=== PATIENT | male | born 1930 | race Caucasian/White ===

== ENCOUNTER 2017-04-05 08:08 | Inpatient (IN) | payer MEDICARE ==
[~2017-04-05] VITALS: Ht 177.8 cm; Wt 90.5 kg
[2017-04-05] VITALS (15 sets, daily range): BP systolic 68–113; BP diastolic 51–87; PULSE 67–91; RESP 16–20; TEMP 97.6–98.4; O2SAT 96–97
[~2017-04-05 08:08] MED LIST changes: -*RESP: ALBUTEROL 2.5 MG/3 ML NEB (PRN) PERIprocedural Use ONLY NEB ONE; -ASPI81CH CHEW; -CHLORHEXIDINE GLUCONATE 2 % 1 PACK (2 CLOTHS) TOPICAL PRN; -FERR325C PO; -HYDR-3516 PO; -INSULIN HUMAN REGULAR 1,000 UNITS/10 ML VIAL SQ PRN; -LACTATED RINGER'S 1000 ML IV PRN; -LEVO.1 PO; -LEVO.15 PO; -LEVO750T3 PO; -METOPROLOL TARTRATE 25 MG TAB PO PRN; -OMEG300C5; -SODIUM CHLORID 0.9% 500 ML IV PRN
[2017-04-05 08:42] LABS: AUTOMATED NEUTROPHIL # 21.6 TH/MM3 (1.8-7.7); BASOPHIL % 0.2 % (0.0-2.0); HEMATOCRIT 31.8 % (39.0-51.0); LYMPH % 2.3 % (9.0-44.0); LYMPHOCYTE # 0.5 TH/MM3 (1.0-4.8); MEAN CELL VOLUME 98.8 FL (80.0-100.0); MEAN CORPUSCULAR HGB CONC 32.4 % (32.0-36.0); MONO % 5.5 % (0.0-8.0); PLATELET COUNT 178 TH/MM3 (150-450); RED BLOOD COUNT 3.22 MIL/MM3 (4.50-5.90); RED CELL DISTRIBUTION WIDTH 17.7 % (11.6-17.2); WHITE BLOOD COUNT 23.5 TH/MM3 (4.0-11.0)
[2017-04-05 08:46] LABS: HEMO FLAGS AUTO DIFF
--- NOTE | 2017-04-05 08:53 | PD ---
HPI Chief Complaint: Abnormal Results Time Seen by Provider: 08:20 Travel History International Travel<30 days: No Contact w/Intl Traveler<30days: No Traveled to known affect area: No History of Present Illness HPI 87yo M with PMH of prostate CA (cancer free for 17 years), hypothyroidism (off synthroid for 3 days) was sent to the ED from same day surgery because of hypotension. As per note from [facility], pt was referred to their office for anemia and acute elevation in LFTs and US showed cholelithiasis with multiple stones in the gallbladder, marked biliary ductal dilatation measuring to 18mm with intrahepatic ductal dilatation suspect ductal obstruction. He denied any blood in stool and had +heme in stool. Pt was suppose to have ERCP by Dr. Marie today but nurse in same day surgery said his blood pressure was 55/44 and called anesthesiologist and was told to send to the ED. Pt denies any fever, chest pain, sob, abdominal pain, focal weakness or numbness or dizziness. Pt had NBNB vomiting last night. Normal bowel movement. PFSH Past Medical History Hx Anticoagulant Therapy: No Cancer: Yes (PROSTATE) Cardiovascular Problems: No Chemotherapy: Yes (HX OF PROSTATE CA) Cerebrovascular Accident: No Diabetes: No Endocrine: No Genitourinary: No Hepatitis: No Hiatal Hernia: No Immune Disorder: No Musculoskeletal: Yes (ARTHRITIS, BROKEN BACK YOUTH, LEFT HIP PAIN) Neurologic: Yes (RIGHT ARM WEAKNESS) Psychiatric: No Reproductive: No Respiratory: No Thyroid Disease: Yes Past Surgical History Abdominal Surgery: Yes (ANGELA. ING. HERNIA REP., APPY) AICD: No Eye Surgery: Yes (LEFT EYE CATARACT EXTRACAT., ANGELA. EYELID SX) Joint Replacement: Yes (LEFT HIP) Pacemaker: No Other Surgery: Yes (1997 PROSTATE REMOVAL S/P CANCER) Social History Alcohol Use: Yes (OCC) Tobacco Use: No Substance Use: No Allergies-Medications (Allergen,Severity, Reaction): Coded Allergies: Iodine (Verified Allergy, Severe, HIVES, SOB STATES ALMOST , 04/05/17) Iohexol (OMNIPAQUE) (Unverified Allergy, Unknown, HIVES - SOB, 04/05/17) Reported Meds & Prescriptions Reported Meds & Active Scripts Active Reported Synthroid (Levothyroxine Sodium) 100 Mcg Tab 100 Mcg PO DAILY Review of Systems Except as stated in HPI: all other systems reviewed are Neg Physical Exam Narrative GENERAL: 87yo M not in distress. SKIN: Jaundice. HEAD: Atraumatic. Normocephalic. EYES: Pupils equal and round. + scleral icterus. No injection or drainage. ENT: No nasal bleeding or discharge. Mucous membranes pink and moist. NECK: Trachea midline. No JVD. CARDIOVASCULAR: Regular rate and rhythm. No murmur appreciated. RESPIRATORY: No accessory muscle use. Clear to auscultation. Breath sounds equal bilaterally. GASTROINTESTINAL: Abdomen soft, non-tender, nondistended. No rebound tenderness or guarding. MUSCULOSKELETAL: No obvious deformities. No clubbing. No cyanosis. No edema. NEUROLOGICAL: Awake and alert. No obvious cranial nerve deficits. Motor grossly within normal limits. Normal speech. AAOx3. PSYCHIATRIC: Appropriate mood and affect; insight and judgment normal. Data Data Last Documented VS Vital Signs Date Time Temp Pulse Resp B/P Pulse Ox O2 Delivery O2 Flow Rate FiO2 04/05/17 09:17 96 Room Air 04/05/17 09:16 82 18 95/57 04/05/17 08:21 2 Orders Complete Blood Count With Diff (04/05/17 08:24) Basic Metabolic Panel (Bmp) (04/05/17 08:24) Thyroid Stimulating Hormone (04/05/17 08:24) Thyroxine (T4) (04/05/17 08:24) Electrocardiogram (04/05/17 ) Chest, Single Ap (04/05/17 ) Hepatic Functional Panel (04/05/17 08:39) Blood Culture (04/05/17 09:20) Lactic Acid Sepsis Protocol (04/05/17 09:20) Piperacil-Tazo 3.375 Gm Premix (Zosyn 3. (04/05/17 09:30) Sodium Chlor 0.9% 1000 Ml Inj (Ns 1000 M (04/05/17 10:00) Sodium Chlor 0.9% 1000 Ml Inj (Ns 1000 M (04/05/17 10:00) Admit Order (Ed Use Only) (04/05/17 10:24) Labs Laboratory Tests Test 04/05/17 04/05/17 08:30 09:25 White Blood Count 23.5 TH/MM3 Red Blood Count 3.22 MIL/MM3 Hemoglobin 10.3 GM/DL Hematocrit 31.8 % Mean Corpuscular Volume 98.8 FL Mean Corpuscular Hemoglobin 32.0 PG Mean Corpuscular Hemoglobin 32.4 % Concent Red Cell Distribution Width 17.7 % Platelet Count 178 TH/MM3 Mean Platelet Volume 8.8 FL Neutrophils (%) (Auto) 92.0 % Lymphocytes (%) (Auto) 2.3 % Monocytes (%) (Auto) 5.5 % Eosinophils (%) (Auto) 0.0 % Basophils (%) (Auto) 0.2 % Neutrophils # (Auto) 21.6 TH/MM3 Lymphocytes # (Auto) 0.5 TH/MM3 Monocytes # (Auto) 1.3 TH/MM3 Eosinophils # (Auto) 0.0 TH/MM3 Basophils # (Auto) 0.0 TH/MM3 CBC Comment AUTO DIFF Differential Total Cells 100 Counted Neutrophils % (Manual) 33 % Band Neutrophils % 33 % Lymphocytes % 5 % Monocytes % 6 % Neutrophils # (Manual) 20.9 TH/MM3 Metamyelocytes 21 % Myelocytes 2 % Differential Comment FINAL DIFF MANUAL Toxic Granulation 1+ Toxic Vacuolation PRESENT Dohle Bodies PRESENT Ovalocytes 1+ Sodium Level 142 MEQ/L Potassium Level 3.5 MEQ/L Chloride Level 106 MEQ/L Carbon Dioxide Level 19.4 MEQ/L Anion Gap 17 MEQ/L Blood Urea Nitrogen 23 MG/DL Creatinine 1.82 MG/DL Estimat Glomerular Filtration 35 ML/MIN Rate Random Glucose 97 MG/DL Calcium Level 8.7 MG/DL Total Bilirubin 8.9 MG/DL Direct Bilirubin 5.9 MG/DL Indirect Bilirubin 3.0 MG/DL Aspartate Amino Transf 150 U/L (AST/SGOT) Alanine Aminotransferase 108 U/L (ALT/SGPT) Alkaline Phosphatase 415 U/L Total Protein 6.5 GM/DL Albumin 2.5 GM/DL Thyroxine (T4) 7.8 MCG/DL Thyroid Stimulating Hormone 11.300 uIU/ML 3rd Gen Lactic Acid Level 7.1 mmol/L [facility] Medical Decision Making Medical Screen Exam Complete: Yes Emergency Medical Condition: Yes Interpretation(s) EKG: NSR 79bpm. Normal axis. Differential Diagnosis acute cholangitis vs. septic shock vs. electrolyte abnormality Narrative Course 87yo M sent here from same day surgery for hypotension. Pt came with a liter of LR that was started. Also gave a liter of NS here. BP initially 65/46 in the ED. Repeat BP is now 81/51. Pt is asymptomatic. Labs reviewed, leukocytosis at 23.5. Blood cultures x2 drawn and pt given IV zosyn. H/H low at 10.3/31.8, decreased from previous. Lactic acid elevated at 7.1. Creatinine elevated at 1.82 compared to 0.77 from baseline. Elevated LFTs and bilirubin. TSH elevated but normal T4. CXR showed mildly under inflated examination without acute cardiopulmonary abnormality. Pt is suppose to have ERCP today. Impression is acute cholangitis. Discussed with GI Dr. Marie who recommends admitting him to medicine and he will consult. Pt has gotten 2 liter of IVF (1 LR and 1 NS) and BP has improved to 95/57. Will give one more liter of NS IV and continue to monitor. May need to start norepinephrine. Discussed with Dr. Hernández and accepted to ICU under his service. Critical Care Narrative Aggregate critical care time was 60 minutes. Time to perform other separately billable procedures was not included in the critical care time. My time did not include minutes spent treating any other patients simultaneously or on activities that did not directly contribute to the patient's treatment. The services I provided to this patient were to treat and/or prevent clinically significant deterioration that could result in: cardiovascular collapse or . I provided critical care services requiring my management, as noted below: Chart data review, documentation time, medication orders and management, vital sign assessments/reviewing monitor data, ordering and reviewing lab tests, ordering and interpreting/reviewing x-rays and diagnostic studies, care of the patient and discussion of the patient with the admitting physicians. Diagnosis Primary Impression: Acute cholangitis Admitting Information Admitting Physician Requests: it Lima Alcala DO April 05, 2017 08:53
[2017-04-05 09:14] LABS: BICARBONATE 19.4 MEQ/L (21.0-32.0)
[2017-04-05 09:15] LABS: POTASSIUM 3.5 MEQ/L (3.5-5.1)
[2017-04-05 09:29] LABS: THYROXINE (T4) 7.8 MCG/DL (4.5-12.1); TOTAL BILIRUBIN ADULT 8.9 MG/DL (0.2-1.0)
[2017-04-05] MEDS ORDERED: PIPERACIL-TAZO 3.375 GM PREMIX 50 ML IV ONE (09:30)
--- NOTE | 2017-04-05 09:34 | RADRPT ---
EXAM DATE/TIME: 04/05/2017 09:07 [place] COMPARISON: No previous studies available for comparison. INDICATIONS : Difficulty breathing. Fluid overload. Patient was sent to the emergency room from same day surgery with low blood pressure. MEDICAL HISTORY : Carcinoma, prostatic. SURGICAL HISTORY : Inguinal hernia repair. Appendectomy. Prostatectomy. ENCOUNTER: Initial ACUITY: 1 day PAIN SCORE: 0/10 LOCATION: Bilateral chest FINDINGS: Portable AP view of the chest demonstrates a normal-sized cardiac silhouette. No effusion, consolidat ion, or pneumothorax is visualized. There is mild underinflation with mild atelectasis at the right l donovan base. Bones and soft tissues demonstrate no acute finding. CONCLUSION: Mildly underinflated examination without acute cardiopulmonary abnormality identified. Faustino Orozco MD on April 05, 2017 at 9:32 Board Certified Radiologist. This report was verified electronically.
[2017-04-05 09:44] LABS: BANDS 33 % (0-6); METAMYELOCYTES 21 % (0-1); MYELOCYTES 2 % (0-0); NEUTROPHIL # MANUAL DIFF 20.9 TH/MM3 (1.8-7.7); POLYS (SEG NEUTROPHILS) 33 % (16-70); WBC DIFF SAMPLE 100
[2017-04-05 09:45] LABS: DOHLE BODIES PRESENT (NONE SEEN); TOXIC GRANULATION 1+ (NORMAL); TOXIC VACUOLATION PRESENT (NONE SEEN)
[2017-04-05 09:48] LABS: OVALOCYTES 1+ (NORMAL)
[2017-04-05 09:50] LABS: SCAN/DIFF FINAL DIFF MANUAL
[2017-04-05] MEDS ORDERED: SODIUM CHLOR 0.9% 1000 ML INJ 1,000 ML IV ONE ×2 (10:00)
[2017-04-05] MEDS ORDERED: LEVO.15 PO (10:35)
[2017-04-05] MEDS ORDERED: LEVO.1 PO (10:36)
[2017-04-05] MEDS ORDERED: VASOPRESSIN INJ 40 UNITS in DEXTROSE 5% IN WATER 100ML INJ 98 ML IV STA ×2 (10:48)
--- NOTE | 2017-04-05 10:54 | EKG ---
Date Performed: 04/05/2017 Time Performed: 09:22:52 PTAGE: 87 years EKG: Sinus rhythm WITH SHORT TX INTERVAL WITH OCCASIONAL SUPRAVENTRICULAR PREMATURE COMPLEXES POSSIBLE RIGHT VENTRICUL AR CONDUCTION DELAY SEPTAL MYOCARDIAL INFARCTION ABNORMAL ECG PREVIOUS TRACING : 04/05/2017 08.34 No significant change from previous tracing noted. DOCTOR: Isaiah Henderson Interpretating Date/Time 04/05/2017 10:52:06
--- NOTE | 2017-04-05 10:54 | EKG ---
Date Performed: 04/05/2017 Time Performed: 08:34:32 PTAGE: 87 years EKG: Sinus rhythm WITH SHORT ND INTERVAL POSSIBLE RIGHT VENTRICULAR CONDUCTION DELAY SEPTAL MYOCARDIAL INFARCTION ABNO RMAL ECG PREVIOUS TRACING : 10/03/2007 12.57 Compared to previous tracing, possible septal infarction pa ttern is now present. DOCTOR: Isaiah Henderson Interpretating Date/Time 04/05/2017 10:52:43
[2017-04-05] MEDS ORDERED: MISCELLANEOUS NURSING INFORMATION XX SCH (11:00)
[2017-04-05] MEDS ORDERED: CHLORHEXIDINE GLUCONATE 2 % 1 PACK (2 CLOTHS) TOP PRN (11:00)
[2017-04-05] MEDS ORDERED: SODIUM CHLORIDE 0.9% FLUSH 10 ML FLUSH IV FLUSH PRN (11:00)
[2017-04-05] MEDS ORDERED: RESP: ALBUTEROL 2.5 MG/IPRATROPIUM 0.5 MG NEB (PRN) INH (11:00)
[2017-04-05] MEDS: SODIUM CHLOR 0.9% 1000 ML INJ 1,000 ML IV SCH ×2 (11:15→18:11)
[2017-04-05] MEDS: PANTOPRAZOLE SODIUM 40 MG VIAL IV SCH (11:16)
--- NOTE | 2017-04-05 11:40 | PD.CONS ---
HPI History of Present Illness This is a 87 year old [gentleman] was scheduled to have ERCP and sent from pre- op for hypotension. Pt says he felt pretty good this mornign but admits to n/v last night and occasionally for the last 2 weeks. He says he has no pain or other symptoms and didn't think anything was wrong. When asked what happened to necessitate his procedure t today he said his PCP referred him to GI specialist after reviewing labwork a few weeks ago. He then had an MRI [MRCP ? ] but claims no one would talk to him after the MRI. He otherwise unaware of how he got scheduled to have his procedure today. Pt is poor historian. On admission he was found to be hypotensive and WBC 23.5. He is receiving IV fluids. (Shahla Harrell) PFSH Past Medical History hx prostate ca arthritis right arm weakness Past Surgical History inguinal hernia repair cataract left hip replacement radical prostatectomy (Shahla Harrell) Coded Allergies: Iodine (Verified Allergy, Severe, HIVES, SOB STATES ALMOST , 04/05/17) Iohexol (OMNIPAQUE) (Unverified Allergy, Unknown, HIVES - SOB, 04/05/17) Family History non contributory Social History rare ETOH no tobacco no illicit drugs (Shahla Harrell) Review of Systems Constitutional: DENIES: Fever Ears, nose, mouth, throat: DENIES: Throat pain Respiratory: COMPLAINS OF: Sputum production Cardiovascular: DENIES: Chest pain Gastrointestinal: COMPLAINS OF: Nausea, Vomiting, DENIES: Abdominal pain, Black stools, Bloody stools, Constipation, Diarrhea, Hematemesis Genitourinary: DENIES: Hematuria Musculoskeletal: DENIES: Muscle aches Hematologic/lymphatic: DENIES: Bruising Psychiatric: DENIES: Mood changes (Shahla Harrell) GI Exam Vitals I&O Vital Signs Date Time Temp Pulse Resp B/P Pulse Ox O2 Delivery O2 Flow Rate FiO2 04/05/17 11:06 97 Nasal Cannula 2.00 04/05/17 10:58 85 87/59 97 Room Air 04/05/17 09:17 96 Room Air 04/05/17 09:16 82 18 95/57 96 Nasal Cannula 04/05/17 08:21 80 16 96 Nasal Cannula 2 04/05/17 08:12 85 16 68/51 96 Imaging Last Impressions Chest X-Ray 04/05/17 0000 Signed Impressions: Service Date/Time: Wednesday, April 05, 2017 09:07 - CONCLUSION: Mildly underinflated examination without acute cardiopulmonary abnormality identified. Faustino Orozco MD Laboratory Test 04/05/17 04/05/17 08:30 09:25 White Blood Count 23.5 TH/MM3 Red Blood Count 3.22 MIL/MM3 Hemoglobin 10.3 GM/DL Hematocrit 31.8 % Mean Corpuscular Volume 98.8 FL Mean Corpuscular Hemoglobin 32.0 PG Mean Corpuscular Hemoglobin 32.4 % Concent Red Cell Distribution Width 17.7 % Platelet Count 178 TH/MM3 Mean Platelet Volume 8.8 FL Neutrophils (%) (Auto) 92.0 % Lymphocytes (%) (Auto) 2.3 % Monocytes (%) (Auto) 5.5 % Eosinophils (%) (Auto) 0.0 % Basophils (%) (Auto) 0.2 % Neutrophils # (Auto) 21.6 TH/MM3 Lymphocytes # (Auto) 0.5 TH/MM3 Monocytes # (Auto) 1.3 TH/MM3 Eosinophils # (Auto) 0.0 TH/MM3 Basophils # (Auto) 0.0 TH/MM3 CBC Comment AUTO DIFF Differential Total Cells 100 Counted Neutrophils % (Manual) 33 % Band Neutrophils % 33 % Lymphocytes % 5 % Monocytes % 6 % Neutrophils # (Manual) 20.9 TH/MM3 Metamyelocytes 21 % Myelocytes 2 % Differential Comment FINAL DIFF MANUAL Toxic Granulation 1+ Toxic Vacuolation PRESENT Dohle Bodies PRESENT Ovalocytes 1+ Sodium Level 142 MEQ/L Potassium Level 3.5 MEQ/L Chloride Level 106 MEQ/L Carbon Dioxide Level 19.4 MEQ/L Anion Gap 17 MEQ/L Blood Urea Nitrogen 23 MG/DL Creatinine 1.82 MG/DL Estimat Glomerular Filtration 35 ML/MIN Rate Random Glucose 97 MG/DL Calcium Level 8.7 MG/DL Total Bilirubin 8.9 MG/DL Direct Bilirubin 5.9 MG/DL Indirect Bilirubin 3.0 MG/DL Aspartate Amino Transf 150 U/L (AST/SGOT) Alanine Aminotransferase 108 U/L (ALT/SGPT) Alkaline Phosphatase 415 U/L Total Protein 6.5 GM/DL Albumin 2.5 GM/DL Thyroxine (T4) 7.8 MCG/DL Thyroid Stimulating Hormone 11.300 uIU/ML 3rd Gen Lactic Acid Level 7.1 mmol/L Date/Time Procedure Status Source Growth 04/05/17 09:32 Aerobic Blood Culture Received Blood Peripheral Pending 04/05/17 09:32 Anaerobic Blood Culture Received Blood Peripheral Pending Physical Examination HEENT: EOMI; normocephalic; atraumatic; +icterus CHEST: CTA CARDIAC: RRR ABDOMEN: Soft, nondistended, nontender; no hepatosplenomegaly; bowel sounds are present in all four quadrants. EXTREMITIES: No clubbing, cyanosis, or edema. SKIN: Normal; no rash; +jaundice. GENERAL MILLING SUPERINTENDENT: No focal deficits; alert and oriented times three. (Shahla Harrell) Assessment and Plan Plan ASSESSMENT - elevated LFTs, jaundice - tbil 8.9, AST 150, ALT 108, ALP 415. per EMR a US indicated cholelithiasis, marked biliary ductal dilatation 18mm w/ intrahepatic ductal dilatation, suspicion for ductal obstruction. Pt was scheduled for MRCP and became hypotensive. PLAN - ERCP when stable - keep NPO - IV fluids - supportive care This pt seen by myself and Dr Marie and this note is written on his behalf ( Shahla Harrell) Physician Comments Seen and examined, plan for ERCP as soon as possible, for stenting in a sitting of Sepsis and cholangitis, await anesthesia clearance. Continue hydration, ATB, and supportive care. Further recommendations to follow. (Binu Marie MD) Shahla Harrell April 05, 2017 11:40 Binu Marie MD April 05, 2017 15:18
[2017-04-05 11:42] LABS: LACTIC ACID GHOST NOT REPORTABLE
--- NOTE | 2017-04-05 14:17 | HHI.HP ---
HPI Service Critical Care Medicine Primary Care Physician Tj Fallon Admission Diagnosis Acute cholangitis, severe sepsis Diagnosis: Travel History International Travel<30 Days: No Contact w/Intl Traveler <30 Da: No Traveled to Known Affected Are: No History of Present Illness 87yo M with PMH of prostate CA (cancer free for 17 years), hypothyroidism (off synthroid for 3 days) was sent to the ED from same day surgery because of hypotension. As per note from [facility], pt was referred to their office for anemia and acute elevation in LFTs and US showed cholelithiasis with multiple stones in the gallbladder, marked biliary ductal dilatation measuring to 18mm with intrahepatic ductal dilatation suspect ductal obstruction. He denied any blood in stool and had +heme in stool. Pt was suppose to have ERCP by Dr. Marie today but nurse in same day surgery said his blood pressure was 55/44 and called anesthesiologist and was told to send to the ED. Pt denies any fever, chest pain, sob, abdominal pain, focal weakness or numbness or dizziness. Pt had vomiting last night. Normal bowel movement. Patient received 3 L of crystalloid in the ER with improvement in his blood pressure. He was noted to have abnormal LFTs and a white count of 23,000. He was suspected to have cholangitis. GI requested patient be admitted by medicine and patient was accepted for admission by critical care medicine. When I evaluated the patient in the ER earlier he was laying in the ER stretcher and appeared comfortable not in any acute distress. He denied any nausea or abdominal discomfort. He was feeling cold. Denied any shortness of breath or chest pain. He does have difficulty with his left hip secondary to pain following a remote left hip replacement surgery. He lives alone at home and has a bunch of cats and dogs as well as birds. History PFSH Past Medical History Hx Anticoagulant Therapy: No Cancer: Yes (PROSTATE) Cardiovascular Problems: No Chemotherapy: Yes (HX OF PROSTATE CA) Cerebrovascular Accident: No Diabetes: No Endocrine: No Genitourinary: No Hepatitis: No Hiatal Hernia: No Immune Disorder: No Musculoskeletal: Yes (ARTHRITIS, BROKEN BACK YOUTH, LEFT HIP PAIN) Neurologic: Yes (RIGHT ARM WEAKNESS) Psychiatric: No Reproductive: No Respiratory: No Thyroid Disease: Yes Past Surgical History Abdominal Surgery: Yes (ANGELA. ING. HERNIA REP., APPY) AICD: No Eye Surgery: Yes (LEFT EYE CATARACT EXTRACAT., ANGELA. EYELID SX) Joint Replacement: Yes (LEFT HIP) Pacemaker: No Other Surgery: Yes (1997 PROSTATE REMOVAL S/P CANCER) Social History Alcohol Use: Yes (OCC) Tobacco Use: No Substance Use: No Allergies-Medications Allergies-Medications (Allergen,Severity, Reaction): Coded Allergies: Iodine (Verified Allergy, Severe, HIVES, SOB STATES ALMOST , 04/05/17) Iohexol (OMNIPAQUE) (Unverified Allergy, Unknown, HIVES - SOB, 04/05/17) Reported Meds & Prescriptions Reported Meds & Active Scripts Active Reported Synthroid (Levothyroxine Sodium) 100 Mcg Tab 100 Mcg PO DAILY ROS Review of Systems Except as stated in HPI: all other systems reviewed are Neg Past Family Social History Allergies: Coded Allergies: Iodine (Verified Allergy, Severe, HIVES, SOB STATES ALMOST , 04/05/17) Iohexol (OMNIPAQUE) (Unverified Allergy, Unknown, HIVES - SOB, 04/05/17) Physical Exam Vital Signs Vital Signs Date Time Temp Pulse Resp B/P Pulse Ox O2 Delivery O2 Flow Rate FiO2 04/05/17 13:12 81 18 113/87 96 Room Air 04/05/17 12:20 97.6 91 18 82/51 96 Room Air 04/05/17 12:00 80 16 81/51 96 Room Air 04/05/17 11:06 97 Nasal Cannula 2.00 04/05/17 11:00 80 18 90/64 96 Room Air 04/05/17 10:58 85 87/59 97 Room Air 04/05/17 09:17 96 Room Air 04/05/17 09:16 82 18 95/57 96 Nasal Cannula 04/05/17 08:21 80 16 96 Nasal Cannula 2 04/05/17 08:12 85 16 68/51 96 Physical Exam GENERAL: Elderly male laying in ER stretcher not in any acute distress. SKIN: Jaundice. HEAD: Atraumatic. Normocephalic. EYES: Pupils equal and round. + scleral icterus. No injection or drainage. ENT: No nasal bleeding or discharge. Mucous membranes pink and moist. NECK: Trachea midline. No JVD. CARDIOVASCULAR: Regular rate and rhythm. No murmur appreciated. RESPIRATORY: No accessory muscle use. Clear to auscultation. Breath sounds equal bilaterally. GASTROINTESTINAL: Abdomen soft, non-tender, nondistended. No rebound tenderness or guarding. MUSCULOSKELETAL: No obvious deformities. No clubbing. No cyanosis. No edema. NEUROLOGICAL: Awake and alert. No obvious cranial nerve deficits. Motor grossly within normal limits. Normal speech. AAOx3. PSYCHIATRIC: Appropriate mood and affect; insight and judgment normal. Laboratory Laboratory Tests Test 04/05/17 04/05/17 08:30 09:25 White Blood Count 23.5 Red Blood Count 3.22 Hemoglobin 10.3 Hematocrit 31.8 Mean Corpuscular Volume 98.8 Mean Corpuscular Hemoglobin 32.0 Mean Corpuscular Hemoglobin 32.4 Concent Red Cell Distribution Width 17.7 Platelet Count 178 Mean Platelet Volume 8.8 Neutrophils (%) (Auto) 92.0 Lymphocytes (%) (Auto) 2.3 Monocytes (%) (Auto) 5.5 Eosinophils (%) (Auto) 0.0 Basophils (%) (Auto) 0.2 Neutrophils # (Auto) 21.6 Lymphocytes # (Auto) 0.5 Monocytes # (Auto) 1.3 Eosinophils # (Auto) 0.0 Basophils # (Auto) 0.0 CBC Comment AUTO DIFF Differential Total Cells 100 Counted Neutrophils % (Manual) 33 Band Neutrophils % 33 Lymphocytes % 5 Monocytes % 6 Neutrophils # (Manual) 20.9 Metamyelocytes 21 Myelocytes 2 Differential Comment FINAL DIFF MANUAL Toxic Granulation 1+ Toxic Vacuolation PRESENT Dohle Bodies PRESENT Ovalocytes 1+ Sodium Level 142 Potassium Level 3.5 Chloride Level 106 Carbon Dioxide Level 19.4 Anion Gap 17 Blood Urea Nitrogen 23 Creatinine 1.82 Estimat Glomerular Filtration 35 Rate Random Glucose 97 Calcium Level 8.7 Total Bilirubin 8.9 Direct Bilirubin 5.9 Indirect Bilirubin 3.0 Aspartate Amino Transf 150 (AST/SGOT) Alanine Aminotransferase 108 (ALT/SGPT) Alkaline Phosphatase 415 Total Protein 6.5 Albumin 2.5 Thyroxine (T4) 7.8 Thyroid Stimulating Hormone 11.300 3rd Gen Lactic Acid Level 7.1 Date/Time Procedure Status Source Growth 04/05/17 09:32 Aerobic Blood Culture Received Blood Peripheral Pending 04/05/17 09:32 Anaerobic Blood Culture Received Blood Peripheral Pending Result Diagram: 04/05/1730 04/05/17 0830 Imaging Last Impressions Chest X-Ray 04/05/17 0000 Signed Impressions: Service Date/Time: Wednesday, April 05, 2017 09:07 - CONCLUSION: Mildly underinflated examination without acute cardiopulmonary abnormality identified. Faustino Orozco MD Septic Shock Reassessment Heart: Regular rate and rhythm Lungs: Clear Skin: Warm Peripheral Pulses: Weak Right Radial Capillary Refill: Brisk Assessment and Plan Assessment and Plan 87-year-old male with: Hypotension which is multifactorial secondary to dehydration/sepsis Sepsis Elevated LFTs Cholelithiasis with biliary tract obstruction and hyperbilirubinemia Suspected cholangitis Lactic acidosis CLARY Hypothyroidism Plan Neuro: Follow neuro status, avoid sedatives and narcotics. Cardiovascular: Aggressive fluid resuscitation. Low-dose vasopressin initiated for hypotension. Received 3 L crystalloid in the ER. Continue maintenance IV fluids. Trend lactic acid Pulmonary: Supplemental O2 as needed. GI/liver: Nothing by mouth. GI eval for further management of dilated biliary tract with suspected cholangitis. Discussed with Dr. Marie who will decide regarding ERCP. Renal/: IV hydration, strict intake output, monitor and replete electro lites , follow BUN/creatinine. ID: Empiric antibiotic coverage with IV Zosyn. Follow blood cultures. Endocrine: Watch for hyperglycemia, SSI for glycemic control if needed Prophylaxis: PPI/SCDs. Subcutaneous heparin when okay with GI. Condition critical Time spent on critical care excluding procedures 50 minutes Chaz Hernández MD April 05, 2017 14:17
[2017-04-05] MEDS: PIPERACIL-TAZO 2.25 GM PREMIX 50 ML IV SCH ×2 (18:10→23:11)
[2017-04-05] MEDS: SODIUM CHLORIDE 0.9% FLUSH 10 ML FLUSH IV FLUSH SCH (20:19)
[2017-04-06] VITALS (16 sets, daily range): BP systolic 87–106; BP diastolic 53–77; PULSE 68–100; RESP 16–28; TEMP 97.8–98.8; O2SAT 89–100
[2017-04-06] MEDS: PIPERACIL-TAZO 2.25 GM PREMIX 50 ML IV SCH ×4 (03:53→22:22)
[2017-04-06] MEDS: SODIUM CHLOR 0.9% 1000 ML INJ 1,000 ML IV SCH ×3 (03:53→14:50)
[2017-04-06] MEDS: CHLORHEXIDINE GLUCONATE 2 % 1 PACK (2 CLOTHS) TOP SCH (04:00)
[2017-04-06 06:48] LABS: AUTOMATED NEUTROPHIL # 10.3 TH/MM3 (1.8-7.7); BASOPHIL % 0.2 % (0.0-2.0); EOSINOPHIL # 0.2 TH/MM3 (0-0.4); EOSINOPHIL % 1.9 % (0.0-4.0); HEMATOCRIT 27.6 % (39.0-51.0); LYMPH % 4.2 % (9.0-44.0); LYMPHOCYTE # 0.5 TH/MM3 (1.0-4.8); MEAN CELL VOLUME 99.3 FL (80.0-100.0); MEAN CORPUSCULAR HGB CONC 32.2 % (32.0-36.0); MONO % 1.1 % (0.0-8.0); NEUT % 92.6 % (16.0-70.0); PLATELET COUNT 104 TH/MM3 (150-450); RED BLOOD COUNT 2.78 MIL/MM3 (4.50-5.90); RED CELL DISTRIBUTION WIDTH 17.6 % (11.6-17.2); WHITE BLOOD COUNT 11.1 TH/MM3 (4.0-11.0)
[2017-04-06 07:02] LABS: HEMO FLAGS AUTO DIFF
[2017-04-06 07:11] LABS: ALT (GPT) 85 U/L (12-78); ANION GAP 13 MEQ/L (5-15); AST (GOT) 112 U/L (15-37); BICARBONATE 20.7 MEQ/L (21.0-32.0); BLOOD UREA NITROGEN 31 MG/DL (7-18); CHLORIDE 111 MEQ/L (98-107); GLOMERULAR FILTRATION RATE 48 ML/MIN (>89); POTASSIUM 3.9 MEQ/L (3.5-5.1); SODIUM (NA) 145 MEQ/L (136-145)
[2017-04-06 07:12] LABS: ALKALINE PHOSPHATASE 325 U/L (45-117); TOTAL BILIRUBIN ADULT 6.4 MG/DL (0.2-1.0)
[2017-04-06 07:46] LABS: BANDS 17 % (0-6); NEUTROPHIL # MANUAL DIFF 10.5 TH/MM3 (1.8-7.7); POLYS (SEG NEUTROPHILS) 78 % (16-70); WBC DIFF SAMPLE 100
[2017-04-06 07:47] LABS: PLATELET ESTIMATE SMEAR LOW (NORMAL); PLATELET MORPHOLOGY NORMAL (NORMAL); SCAN/DIFF FINAL DIFF MANUAL
[2017-04-06] MEDS: PANTOPRAZOLE SODIUM 40 MG VIAL IV SCH (09:00)
[2017-04-06] MEDS: SODIUM CHLORIDE 0.9% FLUSH 10 ML FLUSH IV FLUSH SCH ×2 (09:00→22:22)
[2017-04-06] MEDS ORDERED: PROPOFOL 200 MG/20 ML AMP IV ONE (11:03)
[2017-04-06] MEDS ORDERED: IOHEXOL 350 MG/ML 100 ML BTL (for RAD DIAG) OTHER ONE (11:03)
[2017-04-06] MEDS ORDERED: ONDANSETRON HCL 4 MG/2 ML VIAL IV PUSH ONE (11:03)
--- NOTE | 2017-04-06 11:41 | GIPROC ---
[facility] [address] [facility]. [facility], [address] ERCP PROCEDURE REPORT EXAM DATE: 04/06/2017 PATIENT NAME: Arnold Washington MR #: [id number] BIRTHDATE: 1930 ATTENDING: Binu Marie MD ORDER #: [id number] REFLESHER: Abdiel Vaughan Stienbarger, Terrie, and Codi Evans STATUS: inpatient INDICATIONS: The patient is a 87 yr old male here for an ERCP due to established ascending cholangitis and established bile duct stone(s) PROCEDURE PERFORMED: ERCP with sphincterotomy/papillotomy ERCP with stent placement ERCP with removal of calculus/calculi MEDICATIONS: Per Anesthesia . CONSENT: The patient understands the risks and benefits of the procedure and understands that these risks include, but are not limited to: sedation, allergic reaction, infection, perforation and/or bleeding. Alternative means of evaluation and treatment include, among others: physical exam, x-rays, and/or surgical intervention. The patient elects to proceed with this endoscopic procedure. medical equipment was checked for proper function. Hand hygiene and appropriate measures for infection prevention was taken. After the risks, benefits and alternatives of the procedure were thoroughly explained, Informed was verified, confirmed and timeout was successfully executed by the treatment team. With the patient in left semi-prone position, medications were administered intravenously.The Pentax [id number] was passed from the mouth into the esophagus and further advanced from the esophagus into the stomach. From stomach scope was directed to the second portion of the duodenum. Major papilla was aligned with the duodenoscope. The scope position was confirmed fluoroscopically. Rest of the findings/therapeutics are given below. The scope was then completely withdrawn from the patient and the procedure completed. The pulse, BP, and O2 saturation were monitored and documented by the physician and the nursing staff throughout the entire procedure. The patient was cared for as planned according to standard protocol. The patient was then discharged to recovery in stable condition and with appropriate post procedure care. The ampulla was located the second portion of the duodenum. It was located within a periampullary diverticulum. NIX_THIS NIX_THIS There was a large periampullary diverticulum. There was a dilation of the common hepatic duct and CBD. NIX_THIS NIX_THIS Multiple stones were seen in the common bile duct. NIX_THIS Contrast was injected into the bile duct and a cholangiogram obtained. With guidewire in the bile duct, a large biliary sphincterotomy was performed using the sphincterotome. Using a stone extraction balloon the bile duct was swept several times. Three stones were removed from the bile duct successfully. Double Pig tail Stent placement ADVERSE EVENT: There were no complications. IMPRESSIONS: 1. 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 Impacted stone, multiple CBD stones, puss and thick bile drained after sphincterotomy 4. Double Pig-tail plastic stent placed 7F 4CM RECOMMENDATIONS: 1. Antibiotics 2. ICU monitoring 3. Stent removal after 6-8 weeks REPEAT EXAM: As needed Binu Marie MD eSigned: Binu Marie MD 04/06/2017 11:41 AM cc: PATIENT NAME: Arnold Washington MR#: [id number]
[2017-04-06] MEDS ORDERED: DO NOT ADM ANY ANTICOAGULANT DRUGS PRN (11:51)
--- NOTE | 2017-04-06 15:23 | RADRPT ---
EXAM DATE/TIME: 04/06/2017 11:09 [facility] COMPARISON: No previous studies available for comparison. INDICATIONS : Obstruction. FLUORO TIME: 3.34 minutes IMAGE COUNT: 3 CONTRAST: Instilled by Ordering Physician MEDICAL HISTORY : None. SURGICAL HISTORY : None. ENCOUNTER: Initial ACUITY: 1 day PAIN SCORE: 0/10 LOCATION: Right upper quadrant FINDINGS: An ERCP was performed by the ordering physician. The images demonstrate contrast within a prominent common duct. Inflated balloon is seen within the d istal common duct. CONCLUSION: ERCP as above. Kenji Reynoso MD on April 06, 2017 at 15:20 Board Certified Radiologist. This report was verified electronically.
--- NOTE | 2017-04-06 16:57 | HHI.CCPN ---
Subjective Remarks/Hospital Course 04/05: 87yo M with PMH of prostate CA (cancer free for 17 years), hypothyroidism (off synthroid for 3 days) was sent to the ED from same day surgery because of hypotension. As per note from [facility], pt was referred to their office for anemia and acute elevation in LFTs and US showed cholelithiasis with multiple stones in the gallbladder, marked biliary ductal dilatation measuring to 18mm with intrahepatic ductal dilatation suspect ductal obstruction. He denied any blood in stool and had +heme in stool. Pt was suppose to have ERCP by Dr. Marie today but nurse in same day surgery said his blood pressure was 55/44 and called anesthesiologist and was told to send to the ED. Pt denies any fever, chest pain, sob, abdominal pain, focal weakness or numbness or dizziness. Pt had vomiting last night. Normal bowel movement. Patient received 3 L of crystalloid in the ER with improvement in his blood pressure. He was noted to have abnormal LFTs and a white count of 23,000. He was suspected to have cholangitis. GI requested patient be admitted by medicine and patient was accepted for admission by critical care medicine. When I evaluated the patient in the ER earlier he was laying in the ER stretcher and appeared comfortable not in any acute distress. He denied any nausea or abdominal discomfort. He was feeling cold. Denied any shortness of breath or chest pain. He does have difficulty with his left hip secondary to pain following a remote left hip replacement surgery. He lives alone at home and has a bunch of cats and dogs as well as birds. 04/06: Resting in bed comfortably. Denies any nausea or abdominal discomfort currently. Underwent ERCP with sphincterotomy and CBD stenting by GI today, tolerated the procedure well. Remains on low-dose vasopressin for borderline blood pressure. Objective Vital Signs Date Time Temp Pulse Resp B/P Pulse Ox O2 Delivery O2 Flow Rate FiO2 04/06/17 16:00 78 04/06/17 13:15 18 97/53 Nasal Cannula 4 04/06/17 13:00 93 04/06/17 11:50 99.1 Intake and Output 04/05/17 04/05/17 04/06/17 08:00 16:00 00:00 Intake Total 1496 ml Balance 1496 ml Result Diagram: 04/06/17 0611 04/06/17 0611 Other Results Microbiology Date/Time Procedure Status Source Growth 04/05/17 09:32 Aerobic Blood Culture - Preliminary Resulted Blood Peripheral Gram Negative Joao 04/05/17 09:32 Anaerobic Blood Culture - Preliminary Resulted Gram Negative Joao Laboratory Tests Test 04/06/17 04/06/17 06:11 07:00 White Blood Count 11.1 TH/MM3 Red Blood Count 2.78 MIL/MM3 Hemoglobin 8.9 GM/DL Hematocrit 27.6 % Mean Corpuscular Volume 99.3 FL Mean Corpuscular Hemoglobin 32.0 PG Mean Corpuscular Hemoglobin 32.2 % Concent Red Cell Distribution Width 17.6 % Platelet Count 104 TH/MM3 Mean Platelet Volume 8.8 FL Neutrophils (%) (Auto) 92.6 % Lymphocytes (%) (Auto) 4.2 % Monocytes (%) (Auto) 1.1 % Eosinophils (%) (Auto) 1.9 % Basophils (%) (Auto) 0.2 % Neutrophils # (Auto) 10.3 TH/MM3 Lymphocytes # (Auto) 0.5 TH/MM3 Monocytes # (Auto) 0.1 TH/MM3 Eosinophils # (Auto) 0.2 TH/MM3 Basophils # (Auto) 0.0 TH/MM3 CBC Comment AUTO DIFF Differential Total Cells 100 Counted Neutrophils % (Manual) 78 % Band Neutrophils % 17 % Lymphocytes % 4 % Monocytes % 1 % Neutrophils # (Manual) 10.5 TH/MM3 Differential Comment FINAL DIFF MANUAL Platelet Estimate LOW Platelet Morphology Comment NORMAL Sodium Level 145 MEQ/L Potassium Level 3.9 MEQ/L Chloride Level 111 MEQ/L Carbon Dioxide Level 20.7 MEQ/L Anion Gap 13 MEQ/L Blood Urea Nitrogen 31 MG/DL Creatinine 1.40 MG/DL Estimat Glomerular Filtration 48 ML/MIN Rate Random Glucose 84 MG/DL Lactic Acid Level 3.8 mmol/L Calcium Level 7.8 MG/DL Total Bilirubin 6.4 MG/DL Aspartate Amino Transf 112 U/L (AST/SGOT) Alanine Aminotransferase 85 U/L (ALT/SGPT) Alkaline Phosphatase 325 U/L Total Protein 5.7 GM/DL Albumin 2.0 GM/DL Nasal Screen MRSA (PCR) MRSA NOT DETECTED Imaging Last Impressions Chest X-Ray 04/05/17 0000 Signed Impressions: Service Date/Time: Wednesday, April 05, 2017 09:07 - CONCLUSION: Mildly underinflated examination without acute cardiopulmonary abnormality identified. Faustino Orozco MD Objective Remarks GENERAL: Elderly male laying in bed not in any acute distress. SKIN: Jaundice. HEAD: Atraumatic. Normocephalic. EYES: Pupils equal and round. + scleral icterus. No injection or drainage. ENT: No nasal bleeding or discharge. Mucous membranes pink and moist. NECK: Trachea midline. No JVD. CARDIOVASCULAR: Regular rate and rhythm. No murmur appreciated. RESPIRATORY: No accessory muscle use. Clear to auscultation. Breath sounds equal bilaterally. GASTROINTESTINAL: Abdomen soft, non-tender, nondistended. No rebound tenderness or guarding. MUSCULOSKELETAL: No obvious deformities. No clubbing. No cyanosis. No edema. NEUROLOGICAL: Awake and alert. No obvious cranial nerve deficits. Motor grossly within normal limits. Normal speech. AAOx3. PSYCHIATRIC: Appropriate mood and affect; insight and judgment normal. A/P Assessment and Plan 87-year-old male with: Hypotension which is multifactorial secondary to dehydration/sepsis Sepsis Elevated LFTs Cholelithiasis with biliary tract obstruction and hyperbilirubinemia status post ERCP with CBD stenting 04/06 Suspected cholangitis Gram-negative bacteremia Lactic acidosis CLARY Hypothyroidism Plan Neuro: Follow neuro status, avoid sedatives and narcotics. Cardiovascular: Aggressive fluid resuscitation. Low-dose vasopressin initiated for hypotension. Received 3 L crystalloid in the ER. Continue maintenance IV fluids. Trend lactic acid Pulmonary: Supplemental O2 as needed. GI/liver: GI following for dilated biliary tract with suspected cholangitis. Dr. Marie performed ERCP with sphincterotomy, removal of CBD stones and CBD stenting. Renal/: IV hydration, strict intake output, monitor and replete electrolites, follow BUN/creatinine. ID: Empiric antibiotic coverage with IV Zosyn. Blood cultures growing gram- negative rods. We'll repeat blood cultures tomorrow to check for clearing. Will also obtain ID consult. May eventually require cholecystectomy. Endocrine: Watch for hyperglycemia, SSI for glycemic control if needed Prophylaxis: PPI/SCDs. Subcutaneous heparin starting 04/07. Condition critical Time spent on critical care excluding procedures 30 minutes Chaz Hernández MD April 06, 2017 16:56
[2017-04-06] MEDS: NORMOSOL R INJ 1,000 ML IV SCH ×2 (18:00→22:22)
[2017-04-07] VITALS (25 sets, daily range): BP systolic 81–122; BP diastolic 51–81; PULSE 57–81; RESP 11–28; TEMP 97.5–98.3; O2SAT 92–99
[2017-04-07] MEDS: CHLORHEXIDINE GLUCONATE 2 % 1 PACK (2 CLOTHS) TOP SCH (04:00)
[2017-04-07 05:00] LABS: AUTOMATED NEUTROPHIL # 10.3 TH/MM3 (1.8-7.7); BASOPHIL % 0.2 % (0.0-2.0); EOSINOPHIL % 0.2 % (0.0-4.0); HEMATOCRIT 26.1 % (39.0-51.0); LYMPH % 8.4 % (9.0-44.0); MEAN CELL VOLUME 96.4 FL (80.0-100.0); MEAN CORPUSCULAR HGB CONC 33.2 % (32.0-36.0); MONO % 4.4 % (0.0-8.0); NEUT % 86.8 % (16.0-70.0); PLATELET COUNT 67 TH/MM3 (150-450); RED BLOOD COUNT 2.71 MIL/MM3 (4.50-5.90); RED CELL DISTRIBUTION WIDTH 17.5 % (11.6-17.2); WHITE BLOOD COUNT 11.8 TH/MM3 (4.0-11.0)
[2017-04-07 05:13] LABS: HEMO FLAGS AUTO DIFF
[2017-04-07 05:31] LABS: ANION GAP 8 MEQ/L (5-15); AST (GOT) 82 U/L (15-37); BICARBONATE 24.6 MEQ/L (21.0-32.0); BLOOD UREA NITROGEN 33 MG/DL (7-18); CHLORIDE 107 MEQ/L (98-107); GLOMERULAR FILTRATION RATE 59 ML/MIN (>89); POTASSIUM 3.2 MEQ/L (3.5-5.1); SODIUM (NA) 140 MEQ/L (136-145)
[2017-04-07 05:35] LABS: ALKALINE PHOSPHATASE 289 U/L (45-117); ALT (GPT) 78 U/L (12-78); TOTAL BILIRUBIN ADULT 4.5 MG/DL (0.2-1.0)
[2017-04-07] MEDS: NORMOSOL R INJ 1,000 ML IV SCH ×2 (06:19→17:38)
[2017-04-07] MEDS: PIPERACIL-TAZO 2.25 GM PREMIX 50 ML IV SCH ×2 (06:20→11:04)
[2017-04-07 07:02] LABS: OVALOCYTES 1+ (NORMAL); SCAN/DIFF AUTO DIFF CONFIRMED
[2017-04-07] MEDS ORDERED: HEPARIN SODIUM - SQ 10,000 UNITS/ML VIAL SQ SCH (09:00)
[2017-04-07] MEDS: SODIUM CHLORIDE 0.9% FLUSH 10 ML FLUSH IV FLUSH SCH ×2 (09:14→19:51)
[2017-04-07] MEDS: PANTOPRAZOLE SODIUM 40 MG VIAL IV SCH (09:14)
--- NOTE | 2017-04-07 09:45 | RADRPT ---
EXAM DATE/TIME: 04/07/2017 08:38 [facility] COMPARISON: No previous studies available for comparison. INDICATIONS : Gallstones. Right upper qaudrant pain. MEDICAL HISTORY : Thyroid disease. Prostate cancer. Arthritis. SURGICAL HISTORY : Tonsillectomy. Appendectomy. Cataract eye surgery. Hernia repair. Prostatectomy. Total Left hip re placement. ERCP with sphincterotomy. ENCOUNTER: Initial ACUITY: 1 day PAIN SCORE: 2/10 LOCATION: Bilateral flank MEASUREMENTS: LIVER: 16.6 cm length COMMON DUCT: Non-visualized RIGHT KIDNEY: 10.0 x 5.9 x 5.6 cm FINDINGS: LIVER: Normal echotexture without focal lesion or ductal dilatation. Left lobe is poorly visualized due to patient body habitus. COMMON DUCT: No intraluminal mass or stone visualized. GALLBLADDER: Multiple echogenic foci are seen within the gallbladder indicating gallstones. Marked asymmetric gall bladder wall thickening. PANCREAS: Poorly visualized due to overlying bowel gas. RIGHT KIDNEY: No evidence of hydronephrosis, stone, or mass. CONCLUSION: 1. Cholelithiasis and severe asymmetric gallbladder wall thickening. Findings may indicate acute chol ecystitis in proper clinical setting. 2. small right pleural effusion. Kenji Reynoso MD on April 07, 2017 at 9:41 Board Certified Radiologist. This report was verified electronically.
--- NOTE | 2017-04-07 09:48 | HHI.CCPN ---
Subjective Remarks/Hospital Course 04/05: 87yo M with PMH of prostate CA (cancer free for 17 years), hypothyroidism (off synthroid for 3 days) was sent to the ED from same day surgery because of hypotension. As per note from [facility], pt was referred to their office for anemia and acute elevation in LFTs and US showed cholelithiasis with multiple stones in the gallbladder, marked biliary ductal dilatation measuring to 18mm with intrahepatic ductal dilatation suspect ductal obstruction. He denied any blood in stool and had +heme in stool. Pt was suppose to have ERCP by Dr. Marie today but nurse in same day surgery said his blood pressure was 55/44 and called anesthesiologist and was told to send to the ED. Pt denies any fever, chest pain, sob, abdominal pain, focal weakness or numbness or dizziness. Pt had vomiting last night. Normal bowel movement. Patient received 3 L of crystalloid in the ER with improvement in his blood pressure. He was noted to have abnormal LFTs and a white count of 23,000. He was suspected to have cholangitis. GI requested patient be admitted by medicine and patient was accepted for admission by critical care medicine. When I evaluated the patient in the ER earlier he was laying in the ER stretcher and appeared comfortable not in any acute distress. He denied any nausea or abdominal discomfort. He was feeling cold. Denied any shortness of breath or chest pain. He does have difficulty with his left hip secondary to pain following a remote left hip replacement surgery. He lives alone at home and has a bunch of cats and dogs as well as birds. 04/06: Resting in bed comfortably. Denies any nausea or abdominal discomfort currently. Underwent ERCP with sphincterotomy and CBD stenting by GI today, tolerated the procedure well. Remains on low-dose vasopressin for borderline blood pressure. 04/07: Resting in bed comfortably. Denies any nausea vomiting or abdominal discomfort currently. Tolerating by mouth diet. Off vasopressin drip for hypotension. Blood cultures growing gram-negative rods. Objective Vital Signs Date Time Temp Pulse Resp B/P Pulse Ox O2 Delivery O2 Flow Rate FiO2 04/07/17 08:31 97 Nasal Cannula 2.00 04/07/17 06:00 63 04/07/17 04:00 98.2 23 122/81 Intake and Output 04/06/17 04/06/17 04/07/17 08:00 16:00 00:00 Intake Total 824 ml 955 ml Output Total 200 ml 550 ml Balance 624 ml 405 ml Result Diagram: 04/07/17 0442 04/07/17 0442 Other Results Laboratory Tests Test 04/07/17 04:42 White Blood Count 11.8 TH/MM3 Red Blood Count 2.71 MIL/MM3 Hemoglobin 8.7 GM/DL Hematocrit 26.1 % Mean Corpuscular Volume 96.4 FL Mean Corpuscular Hemoglobin 32.0 PG Mean Corpuscular Hemoglobin 33.2 % Concent Red Cell Distribution Width 17.5 % Platelet Count 67 TH/MM3 Mean Platelet Volume 9.1 FL Neutrophils (%) (Auto) 86.8 % Lymphocytes (%) (Auto) 8.4 % Monocytes (%) (Auto) 4.4 % Eosinophils (%) (Auto) 0.2 % Basophils (%) (Auto) 0.2 % Neutrophils # (Auto) 10.3 TH/MM3 Lymphocytes # (Auto) 1.0 TH/MM3 Monocytes # (Auto) 0.5 TH/MM3 Eosinophils # (Auto) 0.0 TH/MM3 Basophils # (Auto) 0.0 TH/MM3 CBC Comment AUTO DIFF Differential Comment AUTO DIFF CONFIRMED Ovalocytes 1+ Sodium Level 140 MEQ/L Potassium Level 3.2 MEQ/L Chloride Level 107 MEQ/L Carbon Dioxide Level 24.6 MEQ/L Anion Gap 8 MEQ/L Blood Urea Nitrogen 33 MG/DL Creatinine 1.18 MG/DL Estimat Glomerular Filtration 59 ML/MIN Rate Random Glucose 116 MG/DL Lactic Acid Level 2.2 mmol/L Calcium Level 7.5 MG/DL Total Bilirubin 4.5 MG/DL Aspartate Amino Transf 82 U/L (AST/SGOT) Alanine Aminotransferase 78 U/L (ALT/SGPT) Alkaline Phosphatase 289 U/L Total Protein 5.7 GM/DL Albumin 1.9 GM/DL Imaging Last Impressions Chest X-Ray 04/05/17 0000 Signed Impressions: Service Date/Time: Wednesday, April 05, 2017 09:07 - CONCLUSION: Mildly underinflated examination without acute cardiopulmonary abnormality identified. Faustino Orozco MD Objective Remarks GENERAL: Elderly male laying in bed not in any acute distress. SKIN: Jaundice. HEAD: Atraumatic. Normocephalic. EYES: Pupils equal and round. + scleral icterus. No injection or drainage. ENT: No nasal bleeding or discharge. Mucous membranes pink and moist. NECK: Trachea midline. No JVD. CARDIOVASCULAR: Regular rate and rhythm. No murmur appreciated. RESPIRATORY: No accessory muscle use. Clear to auscultation. Breath sounds equal bilaterally. GASTROINTESTINAL: Abdomen soft, non-tender, nondistended. No rebound tenderness or guarding. MUSCULOSKELETAL: No obvious deformities. No clubbing. No cyanosis. No edema. NEUROLOGICAL: Awake and alert. No obvious cranial nerve deficits. Motor grossly within normal limits. Normal speech. AAOx3. PSYCHIATRIC: Appropriate mood and affect; insight and judgment normal. A/P Assessment and Plan 87-year-old male with: Hypotension which is multifactorial secondary to dehydration/sepsis Sepsis Elevated LFTs Choledocholithiasis/Cholelithiasis with biliary tract obstruction and hyperbilirubinemia status post ERCP with CBD stenting 04/06 Suspected cholangitis Gram-negative bacteremia Lactic acidosis CLARY Hypothyroidism Plan Neuro: Follow neuro status, avoid sedatives and narcotics. Cardiovascular: S/p Aggressive fluid resuscitation.. Received 3 L crystalloid in the ER. Continue maintenance IV fluids. Lactic acid trending down. Off vasopressin gtt. since 04/06 Pulmonary: Supplemental O2 as needed. GI/liver: GI following for dilated biliary tract with suspected cholangitis. Dr. Marie performed ERCP with sphincterotomy, removal of CBD stones and CBD stenting on 04/06. Diet advanced. Consulted general surgery to evaluate for possible need for cholecystectomy as previous imaging showed gallstones. Renal/: IV hydration, strict intake output, monitor and replete electrolites, follow BUN/creatinine. ID: Empiric antibiotic coverage with IV Zosyn. Blood cultures growing gram- negative rods. F/u repeat blood cultures done 04/07 to check for clearing. ID consult requested for cholangitis with GNR bacteremia/ septic shock. May eventually require cholecystectomy. Endocrine: Watch for hyperglycemia, SSI for glycemic control if needed Prophylaxis: PPI/SCDs. Subcutaneous heparin starting 04/07. Patient will be transferred to hospitalist service for further medical management. Critical care will be signing off, please reconsult if needed. Chaz Hernández MD Apr 07, 2017 09:48
[2017-04-07] MEDS ORDERED: POTASSIUM CHLORIDE 25 MEQ EFFERVESCENT TAB PO ONE ×2 (10:45→13:45)
--- NOTE | 2017-04-07 14:52 | PD.ID.CON ---
History of Present Illness Service ID Consult Requested By Dr.Nimish Hernández Reason for Consult Evaluation and Mment of Sepsis and Gram negative bacteremia in pt with suspected cholangitis. Primary Care Physician Tj Fallon Diagnoses: History of Present Illness Patient is an extremely poor historian. His main focus is his hand infection after a cat bite fevers back in the pain after that. He does not talk much about the acute episode that led him to this admission. Mr. Washington is an 87 y/o CM with PMHx of hypothyroidism. Patient reports having abnormal liver function test in the last 2 weeks or so and was scheduled to have an ERCP but was sent from the preop area due to hypotension. Patient reports that he was feeling well until the morning of admission but admits to nausea and vomiting the night before and occasionally off and on for the last 2 weeks. Most of this history was obtained from medical records as patient is an extremely poor historian. He denies any abdominal pain, diarrhea but does report to occasional constipation. His imaging was abnormal done as outpatient probably an MRI or MRCP and hence he was scheduled for an ERCP. Upon admission he was found to be hypotensive WBC 23.5 meeting criteria for sepsis. Patient was given fluid boluses and thereafter was on vasopressin which is currently turned off. A sepsis workup was initiated, blood cultures on admission grew gram-negative rods for limb ideas E coli. Verigene testing negative for any resistance markers. Patient reports he had a colonoscopy many years back and has no interest in getting another colonoscopy. Pt underwent ERCP with Sphincterotomy and stenting. Infectious disease is consulted for evaluation and management of sepsis and gram-negative bacteremia in a patient with suspected cholangitis. Review of Systems ROS Limitations: Poor Historian Constitutional: DENIES: Diaphoretic episodes, Fatigue, Fever, Weight gain, Weight loss, Chills, Dizziness, Change in appetite, Night Sweats Endocrine: DENIES: Heat/cold intolerance, Polydipsia, Polyuria, Polyphagia Eyes: DENIES: Blurred vision, Diplopia, Eye inflammation, Eye pain, Vision loss , Photosensitivity, Double Vision Ears, nose, mouth, throat: DENIES: Tinnitus, Hearing loss, Vertigo, Nasal discharge, Oral lesions, Throat pain, Hoarseness, Ear Pain, Running Nose, Epistaxis, Sinus Pain, Toothache, Odynophagia Respiratory: DENIES: Apneas, Cough, Snoring, Wheezing, Hemoptysis, Sputum production, Shortness of breath Cardiovascular: DENIES: Chest pain, Palpitations, Syncope, Dyspnea on Exertion , PND, Lower Extremity Edema, Orthopnea, Claudication Gastrointestinal: DENIES: Abdominal pain, Black stools, Bloody stools, Constipation, Diarrhea, Nausea, Vomiting, Difficulty Swallowing, Anorexia Genitourinary: DENIES: Sexual dysfunction, Urinary frequency, Urinary incontinence, Urgency, Hematuria, Dysuria, Nocturia, Penile Discharge, Testicular Pain, Testicular Swelling Musculoskeletal: DENIES: Joint pain, Muscle aches, Stiffness, Joint Swelling, Back pain, Neck pain Hematologic/lymphatic: DENIES: Bruising, Lymphadenopathy Immunologic/allergic: DENIES: Eczema, Urticaria Neurologic: DENIES: Abnormal gait, Headache, Localized weakness, Paresthesias, Seizures, Speech Problems, Tremor, Poor Balance Psychiatric: DENIES: Anxiety, Confusion, Mood changes, Depression, Hallucinations, Agitation, Suicidal Ideation, Homicidal Ideation, Delusions Except as stated in HPI: all other systems reviewed are Neg Past Family Social History Allergies: Coded Allergies: Iodine (Verified Allergy, Severe, HIVES, SOB STATES ALMOST , 04/05/17) Iohexol (OMNIPAQUE) (Unverified Allergy, Unknown, HIVES - SOB, 04/05/17) Past Medical History hx prostate ca arthritis right arm weakness Left hand abscess after cat bite. Past Surgical History inguinal hernia repair cataract left hip replacement radical prostatectomy Reported Medications Reported Meds & Active Scripts Active Reported Synthroid (Levothyroxine Sodium) 100 Mcg Tab 100 Mcg PO DAILY Active Ordered Medications Current Medications Medications (Trade) Dose Ordered Sig/Sobia Route Start Time Stop Time Status Last Admin (NS Flush) 2 ml UNSCH PRN IV FLUSH 04/05/17 11:00 04/07/17 09:14 (NS Flush) 2 ml BID IV FLUSH 04/05/17 21:00 04/07/17 09:14 Pantoprazole Sodium 40 mg 40 mg DAILY IV 04/05/17 11:00 04/07/17 09:14 (Zosyn 2.25 Gm Premix) 50 ml @ 200 mls/hr Q6H IV 04/05/17 16:00 04/07/17 11:04 Miscellaneous Information 1 [id number] XX 04/05/17 11:00 04/05/17 11:00 (Chlorhexidine 2% Cloth) 3 pack Taper DAILY@04 [facility] 04/06/17 04:00 04/02/18 03:59 04/06/17 04:00 (Chlorhexidine 2% Cloth) 3 pack UNSCH PRN TOP 04/05/17 11:00 Heparin Sodium (Porcine) 5000 units 5,000 units Q12HR SQ 04/07/17 09:00 Hold (Normosol R Inj) 1,000 ml @ 100 mls/hr Q10H IV 04/06/17 18:00 04/07/17 06:19 Family History rare ETOH no tobacco no illicit drugs Social History rare ETOH no tobacco no illicit drugs Physical Exam Vital Signs Vital Signs Date Time Temp Pulse Resp B/P Pulse Ox O2 Delivery O2 Flow Rate FiO2 04/07/17 13:00 80 26 98 04/07/17 12:00 97.7 61 12 98/66 97 04/07/17 12:00 61 04/07/17 11:00 67 13 93/54 94 04/07/17 10:00 62 04/07/17 10:00 78 28 100/63 92 04/07/17 09:00 63 16 107/70 95 04/07/17 08:31 97 Nasal Cannula 2.00 04/07/17 08:00 97.5 64 13 111/63 96 04/07/17 08:00 65 04/07/17 07:00 81 23 106/73 97 04/07/17 06:00 63 04/07/17 04:00 59 04/07/17 04:00 98.2 59 23 122/81 97 04/07/17 02:00 72 04/07/17 00:00 98.3 64 12 105/61 98 04/07/17 00:00 64 04/06/17 23:55 99 Nasal Cannula 3.00 04/06/17 22:00 86 04/06/17 20:35 97 Nasal Cannula 4.00 04/06/17 20:00 98.0 73 16 97/60 100 04/06/17 20:00 73 04/06/17 18:00 92 04/06/17 18:00 98.7 92 18 98/58 98 04/06/17 16:00 78 04/06/17 16:00 75 18 93/53 98 04/06/17 15:00 98.0 82 26 87/57 96 Physical Exam GENERAL: This is a well-nourished, well-developed patient, in no apparent distress. SKIN: No rashes, ecchymoses or lesions. Cool and dry. HEAD: Atraumatic. Normocephalic. No temporal or scalp tenderness. EYES: Pupils equal round and reactive. Extraocular motions intact. No scleral icterus. No injection or drainage. ENT: Nose without bleeding, purulent drainage or septal hematoma. Throat without erythema, tonsillar hypertrophy or exudate. Uvula midline. Airway patent. NECK: Trachea midline. Supple, nontender, no meningeal signs. CARDIOVASCULAR: Regular rate and rhythm. RESPIRATORY: Clear to auscultation. Breath sounds equal bilaterally. No wheezes , rales, or rhonchi. GASTROINTESTINAL: Abdomen soft, non-tender, nondistended. Foster sign negative. MUSCULOSKELETAL: Extremities without clubbing, cyanosis, or edema. No joint tenderness, effusion, or edema noted. No calf tenderness. Negative Homans sign bilaterally. NEUROLOGICAL: Awake and alert. Grossly nonfocal Psych cooperative IV line sites with no evidence of infection. Laboratory Laboratory Tests Test 04/07/17 04:42 White Blood Count 11.8 Red Blood Count 2.71 Hemoglobin 8.7 Hematocrit 26.1 Mean Corpuscular Volume 96.4 Mean Corpuscular Hemoglobin 32.0 Mean Corpuscular Hemoglobin 33.2 Concent Red Cell Distribution Width 17.5 Platelet Count 67 Mean Platelet Volume 9.1 Neutrophils (%) (Auto) 86.8 Lymphocytes (%) (Auto) 8.4 Monocytes (%) (Auto) 4.4 Eosinophils (%) (Auto) 0.2 Basophils (%) (Auto) 0.2 Neutrophils # (Auto) 10.3 Lymphocytes # (Auto) 1.0 Monocytes # (Auto) 0.5 Eosinophils # (Auto) 0.0 Basophils # (Auto) 0.0 CBC Comment AUTO DIFF Differential Comment AUTO DIFF CONFIRMED Ovalocytes 1+ Sodium Level 140 Potassium Level 3.2 Chloride Level 107 Carbon Dioxide Level 24.6 Anion Gap 8 Blood Urea Nitrogen 33 Creatinine 1.18 Estimat Glomerular Filtration 59 Rate Random Glucose 116 Lactic Acid Level 2.2 Calcium Level 7.5 Total Bilirubin 4.5 Aspartate Amino Transf 82 (AST/SGOT) Alanine Aminotransferase 78 (ALT/SGPT) Alkaline Phosphatase 289 Total Protein 5.7 Albumin 1.9 Date/Time Procedure Status Source Growth 04/06/17 20:32 Aerobic Blood Culture - Preliminary Resulted Blood Peripheral NO GROWTH IN 1 DAY 04/06/17 20:32 Anaerobic Blood Culture - Preliminary Resulted Blood Peripheral NO GROWTH IN 1 DAY Result Diagram: 04/07/17 0442 04/07/17 0442 Imaging Last Impressions Gall Bladder Ultrasound 04/07/17 0000 Signed Impressions: Service Date/Time: April 08:38 - CONCLUSION: 1. Cholelithiasis and severe asymmetric gallbladder wall thickening. Findings may indicate acute cholecystitis in proper clinical setting. 2. small right pleural effusion. Kenji Reynoso MD GI Procedure 04/06/17 0000 Signed Impressions: Service Date/Time: Thursday, April 06, 2017 11:09 - CONCLUSION: ERCP as above. Kenji Reynoso MD Chest X-Ray 04/05/17 0000 Signed Impressions: Service Date/Time: Wednesday, April 05, 2017 09:07 - CONCLUSION: Mildly underinflated examination without acute cardiopulmonary abnormality identified. Faustino Orozco MD Assessment and Plan Assessment and Plan Severe sepsis present on admission. Escherichia coli bacteremia. THE FOLLOWING RESISTANCE MARKERS WERE NOT DETECTED BY [facility]!IGENE NUCLEIC ACID TEST: CTX-M, KPC, NDM, VIM, IMP, OXA. Possible cholangitis (fever, abnormal LFTs, E.coli bacteremia but no abdominal pain or tenderness) Ione negative Possible GI etiology like colon polyp or cancer as cause for E.coli bacteremia Acute renal failure on admission Abnormal LFTs: ? cholangitis. Thrombocytopenia Recs Continue Zosyn IV Review GI consult Follow cultures Follow clinically Recommend colonoscopy at some point to rule out any GI polyps or cancer. case d/w pt, RN and Nereida Momin CCM, MD Apr 07, 2017 14:51
[2017-04-07] MEDS: PIPERACIL-TAZO 4.5 GM PREMIX 100 ML IV SCH ×2 (15:29→21:44)
--- NOTE | 2017-04-07 16:33 | HHI.GIFU ---
Subjective Remarks Pt resting comfortably in bed, denies pain, n/v. Says he feels fine and needs to get home to his cats. (Shahla Harrell) Objective Vitals I&O Vital Signs Date Time Temp Pulse Resp B/P Pulse Ox O2 Delivery O2 Flow Rate FiO2 04/07/17 16:00 65 04/07/17 14:00 73 04/07/17 13:00 80 26 98 04/07/17 12:00 97.7 61 12 98/66 97 04/07/17 12:00 61 04/07/17 11:00 67 13 93/54 94 04/07/17 10:00 62 04/07/17 10:00 78 28 100/63 92 04/07/17 09:00 63 16 107/70 95 04/07/17 08:31 97 Nasal Cannula 2.00 04/07/17 08:00 97.5 64 13 111/63 96 04/07/17 08:00 65 04/07/17 07:00 81 23 106/73 97 04/07/17 06:00 63 04/07/17 04:00 59 04/07/17 04:00 98.2 59 23 122/81 97 04/07/17 02:00 72 04/07/17 00:00 98.3 64 12 105/61 98 04/07/17 00:00 64 04/06/17 23:55 99 Nasal Cannula 3.00 04/06/17 22:00 86 04/06/17 20:35 97 Nasal Cannula 4.00 04/06/17 20:00 98.0 73 16 97/60 100 04/06/17 20:00 73 04/06/17 18:00 92 04/06/17 18:00 98.7 92 18 98/58 98 I/O 04/06/17 04/06/17 04/06/17 04/07/17 04/07/17 04/07/17 07:00 15:00 23:00 07:00 15:00 23:00 Intake Total 824 ml 800 ml 155 ml 1213 ml 1572 ml Output Total 200 ml 250 ml 300 ml 600 ml 500 ml Balance 624 ml 550 ml -145 ml 613 ml 1072 ml Intake Oral 888 ml IV Total 824 ml 300 ml 155 ml 1213 ml 684 ml Other 500 ml Output Urine Total 200 ml 250 ml 300 ml 600 ml 500 ml Stool Total 0 ml Estimated Blood Loss 0 ml # Bowel Movements 2 0 Laboratory Laboratory Tests Test 04/07/17 04:42 White Blood Count 11.8 Red Blood Count 2.71 Hemoglobin 8.7 Hematocrit 26.1 Mean Corpuscular Volume 96.4 Mean Corpuscular Hemoglobin 32.0 Mean Corpuscular Hemoglobin 33.2 Concent Red Cell Distribution Width 17.5 Platelet Count 67 Mean Platelet Volume 9.1 Neutrophils (%) (Auto) 86.8 Lymphocytes (%) (Auto) 8.4 Monocytes (%) (Auto) 4.4 Eosinophils (%) (Auto) 0.2 Basophils (%) (Auto) 0.2 Neutrophils # (Auto) 10.3 Lymphocytes # (Auto) 1.0 Monocytes # (Auto) 0.5 Eosinophils # (Auto) 0.0 Basophils # (Auto) 0.0 CBC Comment AUTO DIFF Differential Comment AUTO DIFF CONFIRMED Ovalocytes 1+ Sodium Level 140 Potassium Level 3.2 Chloride Level 107 Carbon Dioxide Level 24.6 Anion Gap 8 Blood Urea Nitrogen 33 Creatinine 1.18 Estimat Glomerular Filtration 59 Rate Random Glucose 116 Lactic Acid Level 2.2 Calcium Level 7.5 Total Bilirubin 4.5 Aspartate Amino Transf 82 (AST/SGOT) Alanine Aminotransferase 78 (ALT/SGPT) Alkaline Phosphatase 289 Total Protein 5.7 Albumin 1.9 Date/Time Procedure Status Source Growth 04/06/17 20:32 Aerobic Blood Culture - Preliminary Resulted Blood Peripheral NO GROWTH IN 1 DAY 04/06/17 20:32 Anaerobic Blood Culture - Preliminary Resulted Blood Peripheral NO GROWTH IN 1 DAY Imaging Last Impressions Gall Bladder Ultrasound 04/07/17 0000 Signed Impressions: Service Date/Time: April 08:38 - CONCLUSION: 1. Cholelithiasis and severe asymmetric gallbladder wall thickening. Findings may indicate acute cholecystitis in proper clinical setting. 2. small right pleural effusion. Kenji Reynoso MD GI Procedure 04/06/17 0000 Signed Impressions: Service Date/Time: Thursday, April 06, 2017 11:09 - CONCLUSION: ERCP as above. Kenji Reynoso MD Chest X-Ray 04/05/17 0000 Signed Impressions: Service Date/Time: Wednesday, April 05, 2017 09:07 - CONCLUSION: Mildly underinflated examination without acute cardiopulmonary abnormality identified. Faustino Orozco MD Physical Exam HEENT: EOMI; normocephalic; atraumatic; +icterus CHEST: CTA CARDIAC: RRR ABDOMEN: Soft, nondistended, nontender; no hepatosplenomegaly; bowel sounds are present in all four quadrants. EXTREMITIES: No clubbing, cyanosis, or edema. SKIN: Normal; no rash; + jaundice. RIVET STICKER: No focal deficits; alert and oriented times three. (Shahla Harrell) Assessment and Plan Plan ASSESSMENT - cholangitis, elevated LFTs, jaundice - trending down. 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 Pt was scheduled for MRCP and became hypotensive. GS consult pending for cholelithiasis. - leukocytosis - WBC improving PLAN - ALEX - IV fluids - supportive care This pt seen by myself and Dr Marie and this note is written on his behalf ( Shahla Harrell) Physician Comments asymptomatic and doing well . Ducts cleared from pus and stones. Will follow up with you. (Binu Marie MD) Shahla Harrell Apr 07, 2017 16:33 Binu Marie MD Apr 07, 2017 22:43
[2017-04-07] MEDS: LEVOTHYROXINE SODIUM 100 MCG TAB PO SCH (17:38)
[2017-04-08] VITALS (16 sets, daily range): BP systolic 92–123; BP diastolic 56–74; PULSE 50–65; RESP 10–23; TEMP 95.6–98.2; O2SAT 88–95
[2017-04-08] MEDS: NORMOSOL R INJ 1,000 ML IV SCH (03:27)
[2017-04-08] MEDS: PIPERACIL-TAZO 4.5 GM PREMIX 100 ML IV SCH ×3 (03:28→16:04)
[2017-04-08] MEDS: CHLORHEXIDINE GLUCONATE 2 % 1 PACK (2 CLOTHS) TOP SCH (05:30)
[2017-04-08] MEDS: LEVOTHYROXINE SODIUM 100 MCG TAB PO SCH (05:54)
[2017-04-08 06:02] LABS: AUTOMATED NEUTROPHIL # 8.7 TH/MM3 (1.8-7.7); BASOPHIL % 0.1 % (0.0-2.0); EOSINOPHIL # 0.1 TH/MM3 (0-0.4); EOSINOPHIL % 0.6 % (0.0-4.0); HEMATOCRIT 25.8 % (39.0-51.0); LYMPH % 11.4 % (9.0-44.0); LYMPHOCYTE # 1.2 TH/MM3 (1.0-4.8); MEAN CELL VOLUME 95.6 FL (80.0-100.0); MEAN CORPUSCULAR HGB CONC 34.5 % (32.0-36.0); MONO % 5.1 % (0.0-8.0); NEUT % 82.8 % (16.0-70.0); PLATELET COUNT 78 TH/MM3 (150-450); RED CELL DISTRIBUTION WIDTH 17.6 % (11.6-17.2); WHITE BLOOD COUNT 10.5 TH/MM3 (4.0-11.0)
[2017-04-08 06:06] LABS: HEMO FLAGS AUTO DIFF
[2017-04-08 06:35] LABS: ANION GAP 9 MEQ/L (5-15); AST (GOT) 62 U/L (15-37); BICARBONATE 24.5 MEQ/L (21.0-32.0); BLOOD UREA NITROGEN 25 MG/DL (7-18); CHLORIDE 110 MEQ/L (98-107); GLOMERULAR FILTRATION RATE 70 ML/MIN (>89); POTASSIUM 3.5 MEQ/L (3.5-5.1); SODIUM (NA) 143 MEQ/L (136-145)
[2017-04-08 06:37] LABS: ALT (GPT) 68 U/L (12-78)
[2017-04-08 06:39] LABS: ALKALINE PHOSPHATASE 255 U/L (45-117); TOTAL BILIRUBIN ADULT 3.1 MG/DL (0.2-1.0)
[2017-04-08 07:04] LABS: BANDS 19 % (0-6); CORRECTED NUCLEATED RBC 1 /100 WBC (0-0); METAMYELOCYTES 1 % (0-1); NEUTROPHIL # MANUAL DIFF 7.6 TH/MM3 (1.8-7.7); PLATELET ESTIMATE SMEAR LOW (NORMAL); PLATELET MORPHOLOGY NORMAL (NORMAL); POLYS (SEG NEUTROPHILS) 52 % (16-70); SCAN/DIFF FINAL DIFF MANUAL; WBC DIFF SAMPLE 100
[2017-04-08] MEDS: PANTOPRAZOLE SODIUM 40 MG VIAL IV SCH (08:33)
--- NOTE | 2017-04-08 08:39 | HHI.PR ---
Subjective Remarks eager for d/c home. Objective Vitals heart reg lung cta abd s/nt ext no edema Vital Signs Date Time Temp Pulse Resp B/P Pulse Ox O2 Delivery O2 Flow Rate FiO2 04/08/17 06:00 58 20 109/64 91 04/08/17 06:00 58 04/08/17 05:00 55 11 116/63 95 04/08/17 04:00 51 04/08/17 04:00 97.8 51 20 116/59 94 04/08/17 03:00 50 10 99/62 95 04/08/17 02:00 57 04/08/17 02:00 57 18 115/70 94 04/08/17 01:00 59 15 112/63 95 04/08/17 00:33 57 13 110/59 94 04/08/17 00:00 62 04/08/17 00:00 Nasal Cannula 04/08/17 00:00 62 18 108/64 91 04/08/17 00:00 97.4 62 18 108/64 91 04/07/17 23:30 57 12 106/66 97 04/07/17 23:00 60 11 110/64 97 04/07/17 22:00 57 12 109/65 96 04/07/17 22:00 57 04/07/17 21:31 60 14 113/65 95 04/07/17 21:00 64 20 97/57 97 04/07/17 20:26 59 12 91/58 94 04/07/17 20:25 96 Nasal Cannula 1.00 04/07/17 20:00 59 17 81/51 97 04/07/17 20:00 95 Nasal Cannula 1.00 04/07/17 20:00 59 04/07/17 20:00 97.8 59 18 81/51 97 04/07/17 18:00 65 04/07/17 17:00 65 19 102/66 98 04/07/17 16:00 65 04/07/17 16:00 98.0 65 14 103/64 96 04/07/17 15:00 66 20 98/61 98 04/07/17 14:00 66 14 100/60 99 04/07/17 14:00 73 04/07/17 13:00 80 26 98 04/07/17 12:00 97.7 61 12 98/66 97 04/07/17 12:00 61 04/07/17 11:00 67 13 93/54 94 04/07/17 10:00 62 04/07/17 10:00 78 28 100/63 92 04/07/17 09:00 63 16 107/70 95 04/07/17 04/07/17 04/08/17 15:00 23:00 07:00 Intake Total 1572 ml 1005 ml 1183 ml Output Total 500 ml 1100 ml 1000 ml Balance 1072 ml -95 ml 183 ml Intake Oral 888 ml 240 ml 300 ml IV Total 684 ml 765 ml 883 ml Output Urine Total 500 ml 1100 ml 1000 ml Stool Total 0 ml 0 ml # Bowel Movements 0 0 Result Diagram: 04/08/1743 04/08/17542 A/P Problem List: (1) Septic shock Status: Acute Plan: Pt presented with hypotension/septic shock from choledocholithiasis and biliary sepsis. s/p ercp, sphinterotomy/stent. pus noted. gnr/ecoli on 04/05 cx..04/06 cx ngtd. anemia/thrombocytopenia infection related. irais resolving. gi following and GS consulted for timing of lap ronak transfer out of icu diet advanced abx per ID (2) Biliary sepsis Status: Acute Plan: see above (3) Hypothyroidism Status: Chronic (4) CAD (coronary artery disease) Status: Chronic William Mejía MD Apr 08, 2017 08:39
[2017-04-08] MEDS ORDERED: PANTOPRAZOLE SOD 40 MG DELAYED RELEASE TAB PO SCH (09:00)
[2017-04-08] MEDS: SODIUM CHLORIDE 0.9% FLUSH 10 ML FLUSH IV FLUSH SCH (09:00)
--- NOTE | 2017-04-08 10:12 | HHI.CCPN ---
Subjective Remarks/Hospital Course 04/05: 87yo M with PMH of prostate CA (cancer free for 17 years), hypothyroidism (off synthroid for 3 days) was sent to the ED from same day surgery because of hypotension. As per note from [facility], pt was referred to their office for anemia and acute elevation in LFTs and US showed cholelithiasis with multiple stones in the gallbladder, marked biliary ductal dilatation measuring to 18mm with intrahepatic ductal dilatation suspect ductal obstruction. He denied any blood in stool and had +heme in stool. Pt was suppose to have ERCP by Dr. Marie today but nurse in same day surgery said his blood pressure was 55/44 and called anesthesiologist and was told to send to the ED. Pt denies any fever, chest pain, sob, abdominal pain, focal weakness or numbness or dizziness. Pt had vomiting last night. Normal bowel movement. Patient received 3 L of crystalloid in the ER with improvement in his blood pressure. He was noted to have abnormal LFTs and a white count of 23,000. He was suspected to have cholangitis. GI requested patient be admitted by medicine and patient was accepted for admission by critical care medicine. When I evaluated the patient in the ER earlier he was laying in the ER stretcher and appeared comfortable not in any acute distress. He denied any nausea or abdominal discomfort. He was feeling cold. Denied any shortness of breath or chest pain. He does have difficulty with his left hip secondary to pain following a remote left hip replacement surgery. He lives alone at home and has a bunch of cats and dogs as well as birds. 04/06: Resting in bed comfortably. Denies any nausea or abdominal discomfort currently. Underwent ERCP with sphincterotomy and CBD stenting by GI today, tolerated the procedure well. Remains on low-dose vasopressin for borderline blood pressure. 04/07: Resting in bed comfortably. Denies any nausea vomiting or abdominal discomfort currently. Tolerating by mouth diet. Off vasopressin drip for hypotension. Blood cultures growing gram-negative rods. 04/08: Resting in bed comfortably at the time of my evaluation this morning. Denies any nausea vomiting or abdominal pain. Tolerating by mouth diet. Objective Vital Signs Date Time Temp Pulse Resp B/P Pulse Ox O2 Delivery O2 Flow Rate FiO2 04/08/17 10:04 65 04/08/17 09:55 97.6 20 119/65 94 04/08/17 07:00 Room Air 6/1/17 20:25 1.00 Intake and Output 04/07/17 04/07/17 04/07/17 07:59 15:59 23:59 Intake Total 1213 ml 1572 ml 1005 ml Output Total 600 ml 500 ml 1100 ml Balance 613 ml 1072 ml -95 ml Result Diagram: 04/08/17 0543 04/08/17 0543 Imaging Last Impressions Chest X-Ray 04/05/17 0000 Signed Impressions: Service Date/Time: Wednesday, April 05, 2017 09:07 - CONCLUSION: Mildly underinflated examination without acute cardiopulmonary abnormality identified. Faustino Orozco MD Objective Remarks GENERAL: Elderly male laying in bed not in any acute distress. SKIN: Jaundice. HEAD: Atraumatic. Normocephalic. EYES: Pupils equal and round. + scleral icterus. No injection or drainage. ENT: No nasal bleeding or discharge. Mucous membranes pink and moist. NECK: Trachea midline. No JVD. CARDIOVASCULAR: Regular rate and rhythm. No murmur appreciated. RESPIRATORY: No accessory muscle use. Clear to auscultation. Breath sounds equal bilaterally. GASTROINTESTINAL: Abdomen soft, non-tender, nondistended. No rebound tenderness or guarding. MUSCULOSKELETAL: No obvious deformities. No clubbing. No cyanosis. No edema. NEUROLOGICAL: Awake and alert. No obvious cranial nerve deficits. Motor grossly within normal limits. Normal speech. AAOx3. PSYCHIATRIC: Appropriate mood and affect; insight and judgment normal. A/P Assessment and Plan 87-year-old male with: Hypotension which is multifactorial secondary to dehydration/sepsis Sepsis Elevated LFTs Choledocholithiasis/Cholelithiasis with biliary tract obstruction and hyperbilirubinemia status post ERCP with CBD stenting 04/06 Suspected cholangitis Gram-negative bacteremia Lactic acidosis CLARY Hypothyroidism Plan Neuro: Follow neuro status, avoid sedatives and narcotics. Cardiovascular: S/p Aggressive fluid resuscitation.. Received 3 L crystalloid in the ER. Continue maintenance IV fluids. Lactic acid trending down. Off vasopressin gtt. since 04/06 Pulmonary: Supplemental O2 as needed. GI/liver: GI following for dilated biliary tract with suspected cholangitis. Dr. Marie performed ERCP with sphincterotomy, removal of CBD stones and CBD stenting on 04/06. Diet advanced. Consulted general surgery to evaluate for possible need for cholecystectomy as previous imaging showed gallstones. Renal/: IV hydration, strict intake output, monitor and replete electrolites, follow BUN/creatinine. ID: Empiric antibiotic coverage with IV Zosyn. Blood cultures growing gram- negative rods. F/u repeat blood cultures done 04/07 to check for clearing. ID consult requested for cholangitis with GNR bacteremia/ septic shock. May eventually require cholecystectomy. D/W Dr. Milligan who will evaluate patient. Endocrine: Watch for hyperglycemia, SSI for glycemic control if needed Prophylaxis: PPI/SCDs. Subcutaneous heparin starting 04/07. Patient will be transferred to hospitalist service for further medical management. Critical care will be signing off, please reconsult if needed. D/w Dr. Mejía. D/W ID Chaz Hernández MD Apr 08, 2017 10:12
--- NOTE | 2017-04-08 16:10 | HHI.IDPN ---
Subjective Subjective Remarks Mr. Washington is an 87 y/o CM with PMHx of hypothyroidism. Patient reports having abnormal liver function test in the last 2 weeks or so and was scheduled to have an ERCP but was sent from the preop area due to hypotension. Patient reports that he was feeling well until the morning of admission but admits to nausea and vomiting the night before and occasionally off and on for the last 2 weeks. Most of this history was obtained from medical records as patient is an extremely poor historian. He denies any abdominal pain, diarrhea but does report to occasional constipation. His imaging was abnormal done as outpatient probably an MRI or MRCP and hence he was scheduled for an ERCP. Upon admission he was found to be hypotensive WBC 23.5 meeting criteria for sepsis. Patient was given fluid boluses and thereafter was on vasopressin which is currently turned off. A sepsis workup was initiated, blood cultures on admission grew gram-negative rods for limb ideas E coli. Verigene testing negative for any resistance markers. Patient reports he had a colonoscopy many years back and has no interest in getting another colonoscopy. Pt underwent ERCP with Sphincterotomy and stenting. Infectious disease is consulted for evaluation and management of sepsis and gram-negative bacteremia in a patient with suspected cholangitis. Overnight events reviewed. No fevers No rash No diarrhea Antibiotics Zosyn IV Lines Line sites with no e/o infection Past Medical History reviewed Allergies: Coded Allergies: Iodine (Verified Allergy, Severe, HIVES, SOB STATES ALMOST , 04/05/17) Iohexol (OMNIPAQUE) (Unverified Allergy, Unknown, HIVES - SOB, 04/05/17) Objective . Vital Signs Date Time Temp Pulse Resp B/P Pulse Ox O2 Delivery O2 Flow Rate FiO2 04/08/17 12:00 95.6 57 16 95/63 94 04/08/17 10:04 65 04/08/17 09:55 97.6 56 20 119/65 94 04/08/17 09:33 94 Room Air 04/08/17 09:30 95 04/08/17 08:01 52 12 115/71 95 04/08/17 08:00 65 04/08/17 08:00 98.2 58 19 95 04/08/17 07:00 62 23 123/74 88 04/08/17 07:00 98 Room Air 04/08/17 06:00 58 20 109/64 91 04/08/17 06:00 58 20 109/64 91 04/08/17 06:00 58 04/08/17 05:00 55 11 116/63 95 04/08/17 05:00 55 11 116/63 95 04/08/17 04:00 51 13 116/59 94 04/08/17 04:00 51 04/08/17 04:00 97.8 51 20 116/59 94 04/08/17 03:00 50 10 99/62 95 04/08/17 03:00 50 10 99/62 95 04/08/17 02:00 57 18 115/70 94 04/08/17 02:00 57 04/08/17 02:00 57 18 115/70 94 04/08/17 01:00 59 15 112/63 95 04/08/17 01:00 59 15 112/63 95 04/08/17 00:33 57 13 110/59 94 04/08/17 00:33 57 13 110/59 94 04/08/17 00:00 62 18 108/64 91 04/08/17 00:00 62 04/08/17 00:00 Nasal Cannula 04/08/17 00:00 62 18 108/64 91 04/08/17 00:00 97.4 62 18 108/64 91 04/07/17 23:30 57 12 106/66 97 04/07/17 23:00 60 11 110/64 97 04/07/17 22:00 57 12 109/65 96 04/07/17 22:00 57 04/07/17 21:31 60 14 113/65 95 04/07/17 21:00 64 20 97/57 97 04/07/17 20:26 59 12 91/58 94 04/07/17 20:25 96 Nasal Cannula 1.00 04/07/17 20:00 59 17 81/51 97 04/07/17 20:00 95 Nasal Cannula 1.00 04/07/17 20:00 59 04/07/17 20:00 97.8 59 18 81/51 97 04/07/17 18:00 65 04/07/17 17:00 65 19 102/66 98 04/07/17 04/07/17 04/08/17 15:00 23:00 07:00 Intake Total 1572 ml 1005 ml 1183 ml Output Total 500 ml 1100 ml 1000 ml Balance 1072 ml -95 ml 183 ml Intake Oral 888 ml 240 ml 300 ml IV Total 684 ml 765 ml 883 ml Output Urine Total 500 ml 1100 ml 1000 ml Stool Total 0 ml 0 ml # Bowel Movements 0 0 . Laboratory Tests Test 04/07/17 04/08/17 04:42 05:43 White Blood Count 11.8 TH/MM3 10.5 TH/MM3 Red Blood Count 2.71 MIL/MM3 2.70 MIL/MM3 Hemoglobin 8.7 GM/DL 8.9 GM/DL Hematocrit 26.1 % 25.8 % Mean Corpuscular Volume 96.4 FL 95.6 FL Mean Corpuscular Hemoglobin 32.0 PG 33.0 PG Mean Corpuscular Hemoglobin 33.2 % 34.5 % Concent Red Cell Distribution Width 17.5 % 17.6 % Platelet Count 67 TH/MM3 78 TH/MM3 Mean Platelet Volume 9.1 FL 10.0 FL Neutrophils (%) (Auto) 86.8 % 82.8 % Lymphocytes (%) (Auto) 8.4 % 11.4 % Monocytes (%) (Auto) 4.4 % 5.1 % Eosinophils (%) (Auto) 0.2 % 0.6 % Basophils (%) (Auto) 0.2 % 0.1 % Neutrophils # (Auto) 10.3 TH/MM3 8.7 TH/MM3 Lymphocytes # (Auto) 1.0 TH/MM3 1.2 TH/MM3 Monocytes # (Auto) 0.5 TH/MM3 0.5 TH/MM3 Eosinophils # (Auto) 0.0 TH/MM3 0.1 TH/MM3 Basophils # (Auto) 0.0 TH/MM3 0.0 TH/MM3 CBC Comment AUTO DIFF AUTO DIFF Differential Comment AUTO DIFF FINAL DIFF CONFIRMED MANUAL Ovalocytes 1+ Differential Total Cells 100 Counted Neutrophils % (Manual) 52 % Band Neutrophils % 19 % Lymphocytes % 25 % Monocytes % 3 % Neutrophils # (Manual) 7.6 TH/MM3 Metamyelocytes 1 % Nucleated Red Blood Cells 1 /100 WBC Platelet Estimate LOW Platelet Morphology Comment NORMAL Red Cell Morphology Comment NORMAL Laboratory Tests Test 04/07/17 04/08/17 04:42 05:43 Sodium Level 140 MEQ/L 143 MEQ/L Potassium Level 3.2 MEQ/L 3.5 MEQ/L Chloride Level 107 MEQ/L 110 MEQ/L Carbon Dioxide Level 24.6 MEQ/L 24.5 MEQ/L Anion Gap 8 MEQ/L 9 MEQ/L Blood Urea Nitrogen 33 MG/DL 25 MG/DL Creatinine 1.18 MG/DL 1.01 MG/DL Estimat Glomerular Filtration 59 ML/MIN 70 ML/MIN Rate Random Glucose 116 MG/DL 101 MG/DL Lactic Acid Level 2.2 mmol/L Calcium Level 7.5 MG/DL 8.1 MG/DL Total Bilirubin 4.5 MG/DL 3.1 MG/DL Aspartate Amino Transf 82 U/L 62 U/L (AST/SGOT) Alanine Aminotransferase 78 U/L 68 U/L (ALT/SGPT) Alkaline Phosphatase 289 U/L 255 U/L Total Protein 5.7 GM/DL 5.5 GM/DL Albumin 1.9 GM/DL 1.8 GM/DL Microbiology Date/Time Procedure Status Source Growth 04/06/17 20:15 Aerobic Blood Culture - Preliminary Resulted Blood Peripheral NO GROWTH IN 2 DAYS 04/06/17 20:15 Anaerobic Blood Culture - Preliminary Resulted Blood Peripheral NO GROWTH IN 2 DAYS 04/06/17 20:32 Aerobic Blood Culture - Preliminary Resulted Blood Peripheral NO GROWTH IN 2 DAYS 04/06/17 20:32 Anaerobic Blood Culture - Preliminary Resulted Blood Peripheral NO GROWTH IN 2 DAYS Imaging Last Impressions Gall Bladder Ultrasound 04/07/17 0000 Signed Impressions: Service Date/Time: April 08:38 - CONCLUSION: 1. Cholelithiasis and severe asymmetric gallbladder wall thickening. Findings may indicate acute cholecystitis in proper clinical setting. 2. small right pleural effusion. Kenji Reynoso MD GI Procedure 04/06/17 0000 Signed Impressions: Service Date/Time: Thursday, April 06, 2017 11:09 - CONCLUSION: ERCP as above. Kenji Reynoso MD Chest X-Ray 04/05/17 0000 Signed Impressions: Service Date/Time: Wednesday, April 05, 2017 09:07 - CONCLUSION: Mildly underinflated examination without acute cardiopulmonary abnormality identified. Faustino Orozco MD Physical Exam GENERAL: This is a well-nourished, well-developed patient, in no apparent distress. SKIN: No rashes, ecchymoses or lesions. Cool and dry. HEAD: Atraumatic. Normocephalic. No temporal or scalp tenderness. EYES: Pupils equal round and reactive. Extraocular motions intact. No scleral icterus. No injection or drainage. ENT: Nose without bleeding, purulent drainage or septal hematoma. Throat without erythema, tonsillar hypertrophy or exudate. Uvula midline. Airway patent. NECK: Trachea midline. Supple, nontender, no meningeal signs. CARDIOVASCULAR: Regular rate and rhythm. RESPIRATORY: Clear to auscultation. Breath sounds equal bilaterally. No wheezes , rales, or rhonchi. GASTROINTESTINAL: Abdomen soft, non-tender, nondistended. Foster sign negative. MUSCULOSKELETAL: Extremities without clubbing, cyanosis, or edema. No joint tenderness, effusion, or edema noted. No calf tenderness. Negative Homans sign bilaterally. NEUROLOGICAL: Awake and alert. Grossly nonfocal Psych cooperative IV line sites with no evidence of infection. Assessment & Plan Remarks Severe sepsis present on admission. Escherichia coli, Klebsiella and Raolatella orni bacteremia. Possible cholangitis (fever, abnormal LFTs, E.coli bacteremia but no abdominal pain or tenderness) [place] negative Possible GI etiology like colon polyp or cancer as cause for E.coli bacteremia Acute renal failure on admission Abnormal LFTs: ? cholangitis. Thrombocytopenia Recs DC Zosyn IV Switch to oral Levaquin 750 mg po daily high dose for bacteremia for total of 14 additional days. Recommend repeat blood culture as outpatient 1 week after completion of IV antibiotics. Needs surgery follow up to address source control. Follow cultures Follow clinically Recommend colonoscopy at some point to rule out any GI polyps or cancer. case d/w pt, RN and . Nereida Hernández MD Apr 08, 2017 16:10
[2017-04-08] MEDS ORDERED: LEVO750T3 PO (16:18)
--- NOTE | 2017-04-08 16:19 | HHI.DCPOC ---
Discharge Care Plan Diagnosis: (1) Biliary sepsis (2) Septic shock (3) Acute cholangitis (4) CAD (coronary artery disease) (5) Hypothyroidism Goals to Promote Your Health * To prevent worsening of your condition and complications * To maintain your health at the optimal level Directions to Meet Your Goals Take your medications as prescribed Follow your dietary instruction Follow activity as directed Keep your appointments as scheduled Take your immunizations and boosters as scheduled If your symptoms worsen call your PCP, if no PCP go to Urgent Care Center or Emergency Room Smoking is Dangerous to Your Health. Avoid second hand smoke Call the 24-hour hour crisis hotline for domestic abuse at William Mejía MD Apr 08, 2017 16:19
--- NOTE | 2017-04-08 16:43 | HHI.DS ---
Discharge Summary Admission Date April 05, 2017 at 10:25 Discharge Date: Apr 08, 2017 Admitting Diagnosis Acute cholangitis, severe sepsis (1) Septic shock Diagnosis: Principal (2) Biliary sepsis Diagnosis: Principal (3) Hypothyroidism Diagnosis: Secondary (4) CAD (coronary artery disease) Diagnosis: Secondary Consultants Dr. Nereida Hernández - Infectious Disease Dr. Sari Marie - GI Brief History (Brief History obtained from the intensivists H&P) "Mr. Washington is an 87 y/o male with PMH of prostate CA (cancer free for 17 years ) and hypothyroidism (off Synthroid for 3 days) was sent to the ED from same day surgery because of hypotension. As per note from [facility], pt was referred to their office for anemia and acute elevation in LFTs and US showed cholelithiasis with multiple stones in the gallbladder, marked biliary ductal dilatation measuring to 18mm with intrahepatic ductal dilatation suspect ductal obstruction. He denied any blood in stool and had +heme in stool. Pt was suppose to have ERCP by Dr. Marie today but nurse in same day surgery said his blood pressure was 55/44 and called anesthesiologist and was told to send to the ED. Pt denies any fever, chest pain, sob, abdominal pain, focal weakness or numbness or dizziness. Pt had vomiting last night. Normal bowel movement. Patient received 3 L of crystalloid in the ER with improvement in his blood pressure. He was noted to have abnormal LFTs and a white count of 23,000. He was suspected to have cholangitis. GI requested patient be admitted by medicine and patient was accepted for admission by critical care medicine. When I evaluated the patient in the ER earlier he was laying in the ER stretcher and appeared comfortable not in any acute distress. He denied any nausea or abdominal discomfort. He was feeling cold. Denied any shortness of breath or chest pain. He does have difficulty with his left hip secondary to pain following a remote left hip replacement surgery. He lives alone at home and has a bunch of cats and dogs as well as birds." CBC/BMP: 04/08/17 0543 04/08/17 0543 Significant Findings Laboratory Tests Test 04/06/17 04/07/17 04/08/17 06:11 04:42 05:43 White Blood Count 11.1 TH/MM3 11.8 TH/MM3 (4.0-11.0) (4.0-11.0) Red Blood Count 2.78 MIL/MM3 2.71 MIL/MM3 2.70 MIL/MM3 (4.50-5.90) (4.50-5.90) (4.50-5.90) Hemoglobin 8.9 GM/DL 8.7 GM/DL 8.9 GM/DL (13.0-17.0) (13.0-17.0) (13.0-17.0) Hematocrit 27.6 % 26.1 % 25.8 % (39.0-51.0) (39.0-51.0) (39.0-51.0) Red Cell Distribution Width 17.6 % 17.5 % 17.6 % (11.6-17.2) (11.6-17.2) (11.6-17.2) Platelet Count 104 TH/MM3 67 TH/MM3 78 TH/MM3 (150-450) (150-450) (150-450) Neutrophils (%) (Auto) 92.6 % 86.8 % 82.8 % (16.0-70.0) (16.0-70.0) (16.0-70.0) Lymphocytes (%) (Auto) 4.2 % 8.4 % (9.0-44.0) (9.0-44.0) Neutrophils # (Auto) 10.3 TH/MM3 10.3 TH/MM3 8.7 TH/MM3 (1.8-7.7) (1.8-7.7) (1.8-7.7) Lymphocytes # (Auto) 0.5 TH/MM3 (1.0-4.8) Neutrophils % (Manual) 78 % (16-70) Band Neutrophils % 17 % (0-6) 19 % (0-6) Lymphocytes % 4 % (9-44) Neutrophils # (Manual) 10.5 TH/MM3 (1.8-7.7) Platelet Estimate LOW (NORMAL) LOW (NORMAL) Chloride Level 111 MEQ/L 110 MEQ/L (98-107) (98-107) Carbon Dioxide Level 20.7 MEQ/L (21.0-32.0) Blood Urea Nitrogen 31 MG/DL (7-18) 33 MG/DL (7-18) 25 MG/DL (7-18) Creatinine 1.40 MG/DL (0.60-1.30) Estimat Glomerular Filtration 48 ML/MIN (>89) 59 ML/MIN (>89) 70 ML/MIN (>89) Rate Lactic Acid Level 3.8 mmol/L 2.2 mmol/L (0.4-2.0) (0.4-2.0) Calcium Level 7.8 MG/DL 7.5 MG/DL 8.1 MG/DL (8.5-10.1) (8.5-10.1) (8.5-10.1) Total Bilirubin 6.4 MG/DL 4.5 MG/DL 3.1 MG/DL (0.2-1.0) (0.2-1.0) (0.2-1.0) Aspartate Amino Transf 112 U/L (15-37) 82 U/L (15-37) 62 U/L (15-37) (AST/SGOT) Alanine Aminotransferase 85 U/L (12-78) (ALT/SGPT) Alkaline Phosphatase 325 U/L 289 U/L 255 U/L (45-117) (45-117) (45-117) Total Protein 5.7 GM/DL 5.7 GM/DL 5.5 GM/DL (6.4-8.2) (6.4-8.2) (6.4-8.2) Albumin 2.0 GM/DL 1.9 GM/DL 1.8 GM/DL (3.4-5.0) (3.4-5.0) (3.4-5.0) Ovalocytes 1+ (NORMAL) Potassium Level 3.2 MEQ/L (3.5-5.1) Random Glucose 116 MG/DL (74-106) Nucleated Red Blood Cells 1 /100 WBC (0-0) Imaging Last Impressions Gall Bladder Ultrasound 04/07/17 0000 Signed Impressions: Service Date/Time: April 08:38 - CONCLUSION: 1. Cholelithiasis and severe asymmetric gallbladder wall thickening. Findings may indicate acute cholecystitis in proper clinical setting. 2. small right pleural effusion. Kenji Reynoso MD GI Procedure 04/06/17 0000 Signed Impressions: Service Date/Time: Thursday, April 06, 2017 11:09 - CONCLUSION: ERCP as above. Kenji Reynoso MD Chest X-Ray 04/05/17 0000 Signed Impressions: Service Date/Time: Wednesday, April 05, 2017 09:07 - CONCLUSION: Mildly underinflated examination without acute cardiopulmonary abnormality identified. Faustino Orozco MD Hospital Course Pt presented for an outpt ERCP for acute elevation in LFTs and outpt imaging which noted cholelithiasis with multiple stones in the gallbladder, marked biliary ductal dilatation measuring to 18mm with intrahepatic ductal dilatation suspect ductal obstruction. Pre-procedurally he was found to be hypotension/ septic shock from choledocholithiasis and biliary sepsis. He was admitted to [facility] under the care of the ict support and test engineers. Pt was given aggressive fluid resuscitation, low-dose vasopressin initiated for hypotension and was given empiric antibiotic coverage with IV Zosyn. GI was consulted and pt underwent ERCP with sphincterotomy/stent placement on 04/06/[address] Marie and pt was noted to have Impacted stone, multiple CBD stones, puss and thick bile drained after sphincterotomy performed. ID was consulted. Blood cultures were drawn in the ED (04/05) grew out E. coli, Klebsiella, and Raoultella Ornithinolytica. Repeat blood cultures on 04/06 with no growth to date. Gallbladder US (04/07/17) -- > Cholelithiasis and severe asymmetric gallbladder wall thickening and small right pleural effusion. General surgery was consulted. The pt was insisting upon discharge on 04/08/17 as he was feeling better. ID switched antibiotics to oral Levaquin 750 mg po daily high dose for bacteremia for total of 14 additional days. ID has also recommend repeat blood culture as outpatient 1 week after completion of IV antibiotics, this will be arranged at followup with PCP. Pt did not want to wait to see the General Surgeon during the hospitalization. We discussed the case with Dr. Milligan and states that he will see this patient in the office in 2 weeks, patient is to call to schedule the appt. Patient will need to followup with GI in 2 weeks and will need repeat ERCP with stent removal in 6-8 weeks. Pt will need to followup with his PCP, Dr. Dianna Fallon, in 1 week. Pt Condition on Discharge: Stable Discharge Disposition: Discharge Home Discharge Instructions Follow up Referrals: Gastroenterology - 04/22/17 with Binu Marie MD PCP Follow-up - 1 Week with dianna fallon Surgical - 2 Weeks with Jose Manuel Milligan MD New Medications: Levofloxacin (Levofloxacin) 750 Mg Tablet 750 MG PO Q24H Infection #13 MG Continued Medications: Levothyroxine (Synthroid) 100 Mcg Tab 100 MCG PO DAILY Thyroid #30 Ref 0 TAB Lolita Morris Apr 08, 2017 16:43
[2017-04-08] MEDS ORDERED: LEVOFLOXACIN 750 MG TAB PO SCH (17:00)
== END 2017-04-08 17:31 | disposition home or self-care (01) | DRG 871 ==
LOC: NEPE 08:08 → NEDA 10:25 → HIME 14:40 → N07A 04-08 09:31
PROVIDERS: ADMIT Internal Medicine Critical Care Medicine; ATTEND Internal Medicine Critical Care Medicine
PROC: 0F798DZ Dilation of Common Bile Duct with Intraluminal Device, Via Natural or Artificial Opening Endoscopic (ICD-10-PCS; 2017-04-06)
PROC: 0FC98ZZ Extirpation of Matter from Common Bile Duct, Via Natural or Artificial Opening Endoscopic (ICD-10-PCS; principal; 2017-04-06 11:00)
DX: A41.59 Other Gram-negative sepsis (principal); R65.21 Severe sepsis with septic shock; N17.9 Acute kidney failure, unspecified; E87.2 Acidosis; E86.0 Dehydration; K80.71 Calculus of gallbladder and bile duct without cholecystitis with obstruction; D69.6 Thrombocytopenia, unspecified; E03.9 Hypothyroidism, unspecified; Z85.46 Personal history of malignant neoplasm of prostate; I25.10 Atherosclerotic heart disease of native coronary artery without angina pectoris; A41.51 Sepsis due to Escherichia coli [E. coli]
CPT/HCPCS: 71010; 74330; 76705; 80048; 80053; 80076; 83605; 84436; 84443; 85007; 85025; 85027; 87040; 87077; 87149; 87186; 87205; 87641; 93005; 96365; 99211; C1769; C2625; C9113; G0463; J2405; J2543; J3010; J7030; J7120; Q9967

== ENCOUNTER → 2017-04-05 | Outpatient (CLI) | payer MEDICARE ==
[~2017-04-05] MED LIST: *RESP: ALBUTEROL 2.5 MG/3 ML NEB (PRN) PERIprocedural Use ONLY NEB ONE; ASPI81CH CHEW; ASPI81TA82 PO; CHLORHEXIDINE GLUCONATE 2 % 1 PACK (2 CLOTHS) TOPICAL PRN; FERR325C PO; HYDR-3516 PO; INSULIN HUMAN REGULAR 1,000 UNITS/10 ML VIAL SQ PRN; LACTATED RINGER'S 1000 ML IV PRN; LEVO.1 PO; LEVO.15 PO; LEVO150T7 PO; LEVO750T3 PO; METOPROLOL TARTRATE 25 MG TAB PO PRN; OMEG300C5; SODIUM CHLORID 0.9% 500 ML IV PRN
[2017-04-05 07:55] VITALS: PULSE 94; RESP 20; TEMP 97.4; O2SAT 96
[2017-04-05 07:58] VITALS: BP 70/50
== END ==
LOC: HSDC 07:11
PROVIDERS: ATTEND Specialist
DX: Z53.8 Procedure and treatment not carried out for other reasons (principal)
CPT/HCPCS: 99211; G0463; J7120; J7613

== ENCOUNTER 2017-06-14 08:09 | Observation (INO) | payer MEDICARE ==
[~2017-06-14] VITALS: Ht 188 cm; Wt 77.1 kg
[~2017-06-14 08:09] MED LIST changes: -ASPI81TA82 PO; +BUPIVACAINE/EPINEPHRINE 0.5% 50 ML VIAL ONE; +LEVO.1 PO; -LEVO150T7 PO; +LEVO750T3 PO
[2017-06-14] MEDS ORDERED: OMEG300C5 (08:57)
[2017-06-14] MEDS ORDERED: ASPI81CH CHEW (08:57)
[2017-06-14] MEDS ORDERED: FERR325C PO (08:57)
[2017-06-14 08:58] VITALS: BP 120/75; PULSE 57; RESP 16; TEMP 97.7; O2SAT 98
[2017-06-14] MEDS ORDERED: LACTATED RINGER'S 1000 ML IV PRN (09:00)
[2017-06-14] MEDS ORDERED: ceFAZolin 2 GM PREMIX 50 ML IV SCH (09:00)
[2017-06-14] MEDS ORDERED: CHLORHEXIDINE GLUCONATE 2 % 1 PACK (2 CLOTHS) TOPICAL PRN (09:00)
[2017-06-14] MEDS ORDERED: ACETAMINOPHEN 1000 MG/100 ML VIAL IV SCH (09:00)
[2017-06-14] MEDS ORDERED: metroNIDAZOLE 500 MG INJ 100 ML IV SCH (09:00)
[2017-06-14] MEDS ORDERED: SODIUM CHLORID 0.9% 500 ML IV PRN (09:00)
[2017-06-14] MEDS ORDERED: INSULIN HUMAN REGULAR 1,000 UNITS/10 ML VIAL SQ PRN (09:00)
[2017-06-14] MEDS ORDERED: METOPROLOL TARTRATE 25 MG TAB PO PRN (09:00)
[2017-06-14] MEDS ORDERED: BUPIVACAINE/EPINEPHRINE 0.5% 50 ML VIAL ONE (10:13)
[2017-06-14] MEDS ORDERED: fentaNYL CITRATE 250 MCG/5 ML AMP ONE (10:24)
[2017-06-14] MEDS ORDERED: ACETAMINOPHEN 1000 MG/100 ML VIAL IV ONE (10:24)
[2017-06-14] MEDS ORDERED: SUGAMMADEX SODIUM 200 MG/2 ML VIAL IV PUSH ONE ×2 (11:36)
[2017-06-14] MEDS ORDERED: PHENYLEPH/NS 1000 MCG/10 ML SYR IV ONE (12:00)
[2017-06-14] MEDS ORDERED: ONDANSETRON HCL 4 MG/2 ML VIAL IV PUSH ONE (12:00)
[2017-06-14] MEDS ORDERED: PROPOFOL 200 MG/20 ML AMP IV ONE (12:00)
[2017-06-14] MEDS ORDERED: NORMOSOL R INJ 1,000 ML IV ONE (12:00)
[2017-06-14] MEDS ORDERED: SODIUM CHLORIDE 0.9% FLUSH 10 ML FLUSH IV FLUSH PRN (12:45)
[2017-06-14] MEDS ORDERED: ACETAMINOPHEN 325 MG TAB PO PRN (12:45)
[2017-06-14] MEDS ORDERED: NALOXONE HCL 0.4 MG/ML AMP IV PRN (12:45)
[2017-06-14] MEDS ORDERED: ONDANSETRON HCL 4 MG/2 ML VIAL IV PRN (12:45)
[2017-06-14 12:46] LABS: AUTOMATED NEUTROPHIL # 3.4 TH/MM3 (1.8-7.7); BASOPHIL # 0.1 TH/MM3 (0-0.2); BASOPHIL % 0.7 % (0.0-2.0); EOSINOPHIL # 0.2 TH/MM3 (0-0.4); EOSINOPHIL % 1.8 % (0.0-4.0); HEMATOCRIT 33.5 % (39.0-51.0); HEMO FLAGS DIFF FINAL; LYMPHOCYTE # 4.2 TH/MM3 (1.0-4.8); MEAN CELL VOLUME 99.4 FL (80.0-100.0); MEAN CORPUSCULAR HEMOGLOBIN 32.9 PG (27.0-34.0); MEAN CORPUSCULAR HGB CONC 33.1 % (32.0-36.0); NEUT % 38.5 % (16.0-70.0); PLATELET COUNT 182 TH/MM3 (150-450); RED BLOOD COUNT 3.37 MIL/MM3 (4.50-5.90); RED CELL DISTRIBUTION WIDTH 16.7 % (11.6-17.2); WHITE BLOOD COUNT 8.7 TH/MM3 (4.0-11.0)
--- NOTE | 2017-06-14 12:53 | PD.OP ---
cc: Carlito Shin MD Operative Report Date of Surgery: Jun 14, 2017 Preoperative Diagnosis: (1) History of cholangitis (2) History of endoscopic retrograde cholangiopancreatography Postoperative Diagnosis: (1) History of cholangitis (2) Chronic cholecystitis (3) History of endoscopic retrograde cholangiopancreatography Procedure: Laparoscopic cholecystectomy Anesthesia: OCTAVIANO Surgeon: Carlito Shin Oil Well Cable Tool Operator(s): Monie WEBSTER Operation and Findings: Complications: None apparent EBL:450cc Operative findings: The patient had a large amount of chronic inflammation and scarring. 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 There was a fair amount of oozing from the liver bed in addition to a branch of the cystic artery. Finally appropriate hemostasis was achieved. Procedure in detail: The patient was taken to the operating room and placed in the supine position. General endotracheal anesthesia was induced. The abdomen was prepped and draped in usual sterile fashion and a surgical timeout was performed to verify correct patient procedure and site. Appropriate perioperative antibiotics were administered. Local anesthetic was injected in the skin and subcutaneous tissue superior and to the right of the umbilicus and a 10 mm transverse incision created. Using Sorenson technique the abdomen was entered. The abdomen was then insufflated to 15 mmHg with CO2 gas which the patient tolerated well. Next a 5 mm port was placed in the epigastrium and 1 in the upper abdomen and right lateral abdomen. The patient was placed in reverse Trendelenburg position and turned slightly to the left. Attention was turned to the right upper quadrant and the dome of the gallbladder was grasped and retracted cephalad. The gallbladder had adherent omentum. The gallbladder was thickened and chronically scarred. The liver appeared to have early fibrosis and was quite friable. The infundibulum was retracted laterally to expose Calot's triangle. Blunt dissection and judicious use of electrocautery was used to expose the cystic duct and the cystic artery directly entering the gallbladder. The dissection was somewhat prolonged from the previous scarring and inflammation and required use of the suction table cut off saw operator and [place] and the hook electrocautery. Two clips were placed proximally on cystic duct and artery and one distally and they were transected. The gallbladder was then removed from the liver bed using electrocautery. The gallbladder was then removed from the abdomen using an Endo Catch bag. The clips were in place on the cystic duct and cystic artery stumps, however there was bleeding from between the cystic duct and artery stumps. The source was localized and a clip placed more proximally on the cystic duct which provided hemostasis. In addition Surgicel Snow was placed in the area of the cystic duct and artery and it was very good hemostasis at this point. The right upper quadrant was copiously irrigated. A 19 Mongolian round channel drain was placed through the right lateral abdominal incision and positioned in the gallbladder fossa. It was sutured in place with 3-0 nylon. At this point, the abdomen was allowed to desufflate and trochars were removed. The fascia at the 12 mm port site was closed with 0 Vicryl suture. Skin was closed with subcuticular 4-0 Monocryl as well as Dermabond. The patient tolerated the procedure well and was extubated and taken to PACU in stable condition. All sponge and instrument counts were correct. Carlito Shin MD Jun 14, 2017 12:53
[2017-06-14] MEDS ORDERED: Post-op Orders (for Pharmacy) MISC XX ONE (12:55)
[2017-06-14 13:10] LABS: APTT (PATIENT) 21.1 SEC (24.3-30.1); PROTHROMBIN TIME - PATIENT 11.2 SEC (9.8-11.6)
[2017-06-14] MEDS: SODIUM CHLOR 0.9% 1000 ML INJ 1,000 ML IV SCH (13:24)
[2017-06-14] MEDS ORDERED: DO NOT ADM ANY ANTICOAGULANT DRUGS PRN (13:45)
[2017-06-14] MEDS ORDERED: *morphine SULFATE 8 MG/ML PERIprocedure ONLY ONE (13:51)
[2017-06-14 14:30] VITALS: BP 146/78; PULSE 66; RESP 16; TEMP 95.6; O2SAT 96
[2017-06-14] MEDS: ACETAMINOPHEN/HYDROcodone 325 MG/5 MG TAB PO PRN ×2 (15:20→20:17)
[2017-06-14 20:00] VITALS: BP 120/76; PULSE 94; RESP 17; TEMP 97.9; O2SAT 95
[2017-06-14] MEDS: SODIUM CHLORIDE 0.9% FLUSH 10 ML FLUSH IV FLUSH SCH (20:16)
[2017-06-15] VITALS: BP 115/71; PULSE 86; RESP 20; TEMP 98.6; O2SAT 95
[2017-06-15] MEDS: ACETAMINOPHEN/HYDROcodone 325 MG/5 MG TAB PO PRN ×3 (02:25→12:05)
[2017-06-15] MEDS: SODIUM CHLOR 0.9% 1000 ML INJ 1,000 ML IV SCH (02:25)
[2017-06-15 04:00] VITALS: BP 148/71; PULSE 79; RESP 20; TEMP 98.7; O2SAT 94
[2017-06-15] MEDS ORDERED: KETOROLAC TROMETHAMINE 30 MG/ML (IVP) VIAL IV PUSH SCH (04:25)
[2017-06-15] MEDS ORDERED: MORPHINE SULFATE 4 MG/ML INJ IV PRN (04:45)
[2017-06-15] MEDS ORDERED: LEVOTHYROXINE SODIUM 100 MCG TAB PO SCH (06:00)
[2017-06-15 07:15] LABS: AUTOMATED NEUTROPHIL # 8.4 TH/MM3 (1.8-7.7); BASOPHIL % 0.3 % (0.0-2.0); EOSINOPHIL % 0.4 % (0.0-4.0); HEMATOCRIT 31.7 % (39.0-51.0); HEMO FLAGS DIFF FINAL; LYMPHOCYTE # 1.7 TH/MM3 (1.0-4.8); MEAN CELL VOLUME 99.6 FL (80.0-100.0); MEAN CORPUSCULAR HEMOGLOBIN 33.2 PG (27.0-34.0); MEAN CORPUSCULAR HGB CONC 33.3 % (32.0-36.0); MONO % 8.3 % (0.0-8.0); PLATELET COUNT 142 TH/MM3 (150-450); RED BLOOD COUNT 3.18 MIL/MM3 (4.50-5.90); RED CELL DISTRIBUTION WIDTH 16.3 % (11.6-17.2); WHITE BLOOD COUNT 11.1 TH/MM3 (4.0-11.0)
[2017-06-15 07:21] LABS: TOTAL BILIRUBIN ADULT 1.1 MG/DL (0.2-1.0)
[2017-06-15 07:27] LABS: INDIRECT BILIRUBIN 0.9 MG/DL (0.0-0.8); POTASSIUM 4.1 MEQ/L (3.5-5.1)
[2017-06-15 08:00] VITALS: BP 130/71; PULSE 72; RESP 12; TEMP 95.9; O2SAT 96
[2017-06-15] MEDS: SODIUM CHLORIDE 0.9% FLUSH 10 ML FLUSH IV FLUSH SCH (09:00)
--- NOTE | 2017-06-15 09:13 | HHI.FF ---
Face to Face Verification Diagnosis: (1) Chronic cholecystitis (2) History of cholangitis Home Health Nursing Order: Medical education Signs/symptoms of disease process Nursing assessment with vital signs Instructions: AUGUST drain care and record output daily please I have seen patient Arnold WashingtonJr on 06/15/17. My clinical findings support the need for the requested home health care services because: Ltd mobility - disease progression Deconditioned w/ increased weakness High risk of falls I certify that my clinical findings support that this patient is homebound because: Post-op weakness Unsteady gait/balance Need for psychosocial assistance Carlito Shin MD Jun 15, 2017 09:13
[2017-06-15] MEDS ORDERED: HYDR-3516 PO (11:52)
--- NOTE | 2017-06-15 11:55 | HHI.PR ---
Subjective Subjective Notes He c/o pain when jesús placed to suction. Tolerating regular diet. Objective Vitals/I&O Vital Signs Date Time Temp Pulse Resp B/P Pulse Ox O2 Delivery O2 Flow Rate FiO2 06/15/17 08:00 95.9 72 12 130/71 96 06/14/17 14:00 Nasal Cannula 2 Labs Laboratory Tests Test 06/14/17 06/15/17 12:00 05:40 White Blood Count 8.7 11.1 Red Blood Count 3.37 3.18 Hemoglobin 11.1 10.6 Hematocrit 33.5 31.7 Mean Corpuscular Volume 99.4 99.6 Mean Corpuscular Hemoglobin 32.9 33.2 Mean Corpuscular Hemoglobin 33.1 33.3 Concent Red Cell Distribution Width 16.7 16.3 Platelet Count 182 142 Mean Platelet Volume 7.8 7.6 Neutrophils (%) (Auto) 38.5 76.0 Lymphocytes (%) (Auto) 48.0 15.0 Monocytes (%) (Auto) 11.0 8.3 Eosinophils (%) (Auto) 1.8 0.4 Basophils (%) (Auto) 0.7 0.3 Neutrophils # (Auto) 3.4 8.4 Lymphocytes # (Auto) 4.2 1.7 Monocytes # (Auto) 1.0 0.9 Eosinophils # (Auto) 0.2 0.0 Basophils # (Auto) 0.1 0.0 CBC Comment DIFF FINAL DIFF FINAL Differential Comment Prothrombin Time 11.2 Prothromb Time International 1.0 Ratio Activated Partial 21.1 Thromboplast Time Sodium Level 139 Potassium Level 4.1 Chloride Level 108 Carbon Dioxide Level 24.0 Anion Gap 7 Blood Urea Nitrogen 13 Creatinine 0.85 Estimat Glomerular Filtration 85 Rate Random Glucose 97 Calcium Level 7.9 Total Bilirubin 1.1 Direct Bilirubin 0.2 Indirect Bilirubin 0.9 Aspartate Amino Transf 39 (AST/SGOT) Alanine Aminotransferase 30 (ALT/SGPT) Alkaline Phosphatase 67 Total Protein 5.9 Albumin 2.5 Narrative Exam NAD Abd: soft, mild post op ttp, jesús ss output, inc c/d/i A/P Assessment and Plan 87 yo M POD 1 lap ronak. Stable, tolerating diet. JESÚS ss. Labs ok. D/c drain. D/c home. Regular diet. Lortab rx. F/u with me two weeks. Activity- no heavy lifting. Stable condition. Kip,Carlito MD Jun 15, 2017 11:55
[2017-06-15 12:00] VITALS: BP 103/63; PULSE 74; RESP 15; TEMP 95.6; O2SAT 97
== END 2017-06-15 14:44 | disposition home or self-care (01) ==
LOC: HSDC 08:09 → HSDI 12:46 → N07A 14:29
PROVIDERS: ADMIT Surgery; ATTEND Surgery
PROC: 0FT44ZZ Resection of Gallbladder, Percutaneous Endoscopic Approach (ICD-10-PCS; principal; 2017-06-14 10:26)
DX: K80.12 Calculus of gallbladder with acute and chronic cholecystitis without obstruction (principal); I10 Essential (primary) hypertension; E78.5 Hyperlipidemia, unspecified; I25.10 Atherosclerotic heart disease of native coronary artery without angina pectoris; Z87.891 Personal history of nicotine dependence; Z79.899 Other long term (current) drug therapy; Z79.82 Long term (current) use of aspirin
CPT/HCPCS: 00790; 47562; 80048; 80076; 85025; 85610; 85730; 88304; 94150; 96365; 96366; G0378; J0131; J0690; J1885; J2270; J2370; J2405; J3010; J7030; J7120

== ENCOUNTER → 2017-07-26 | Outpatient (CLI) | payer MEDICARE ==
[~2017-07-26] VITALS: Ht 188 cm; Wt 77.7 kg
[~2017-07-26] MED LIST changes: +ASPI81CH CHEW; -BUPIVACAINE/EPINEPHRINE 0.5% 50 ML VIAL ONE; +CHLORHEXIDINE GLUCONATE 2 % 1 PACK (2 CLOTHS) TOPICAL PRN; +DO NOT ADM ANY ANTICOAGULANT DRUGS PRN; +FERR325C PO; +FLUMAZENIL 0.5 MG/5 ML VIAL IV PUSH PRN; +HYDR-3516 PO; +INSULIN HUMAN REGULAR 1,000 UNITS/10 ML VIAL SQ PRN; +IOHEXOL 350 MG/ML 50 ML BTL (for RAD DIAG) OTHER ONE; +LACTATED RINGER'S 1000 ML IV PRN; -LEVO750T3 PO; +METOPROLOL TARTRATE 25 MG TAB PO PRN; +NALOXONE HCL 0.4 MG/ML AMP IV PUSH PRN; +OCUVTAB4 PO; +OMEG300C5 PO; +POVIDONE IODINE 5% (ANTISEPSIS KIT) 4 APPLICATIONS EACH NARE PRN; +PROPOFOL 200 MG/20 ML AMP IV PUSH ONE; +SODIUM CHLORID 0.9% 500 ML IV PRN
--- NOTE | 2017-07-26 11:42 | PD.PROCEDR ---
GI Procedure PROCEDURE PERFORMED ERCP with biliary stent removal and balloon extraction INDICATION FOR PROCEDURE Recent history of choledocholithiasis cholelithiasis and cholangitis patient has a biliary stent that needs to be removed PROCEDURE: The procedure, risks and benefits were discussed with Mr. Washington and informed consent was obtained. Anesthesia sedated him with Diprivan. He was placed in the left lateral decubitus position. ERCP: Patient was placed in a prone position. The Pentax videoscope was introduced through the oropharynx and advanced to the second portion of the duodenum where the ampula was identified. FINDINGS: Scope was advanced to the second portion of the duodenum where the stent was noted protruding from the ampulla which was located within a duodenal diverticulum the stent was removed using snare technique and then the bile duct was recannulated there was still some fine filling defects in the distal portion and so the bile duct was swept with a 12 mm balloon sludge and debris were noted coming out then an obstructive cholangiogram revealed clearance of the common bile duct and the procedure was then terminated. The ampulla had the appearance of a prior sphincterotomy ESTIMATED BLOOD LOSS: None SPECIMENS REMOVED: None COMPLICATIONS: None IMPRESSION: Choledocholithiasis Duodenal diverticulum PLAN: Patient to have CBC and CMP prior next office visit Follow up in clinic in 4 weeks Sundeep Leo MD Jul 26, 2017 11:42
[2017-07-26 12:35] VITALS: BP 124/74; PULSE 66; RESP 16; TEMP 97.5; O2SAT 99
--- NOTE | 2017-07-26 15:34 | RADRPT ---
EXAM DATE/TIME: 07/26/2017 11:27 [place] COMPARISON: GI LAB ERCP, April 06, 2017, 11:09. INDICATIONS : Obstruction. FLUORO TIME: 2 minutes IMAGE COUNT: 3 CONTRAST: Instilled by Ordering Physician MEDICAL HISTORY : Thyroid disease. Prostate cancer. Arthritis SURGICAL HISTORY : Tonsillectomy. Appendectomy. Cataract eye surgery. Hernia repair. Prostatectomy. ENCOUNTER: Initial ACUITY: 1 day PAIN SCORE: Non-responsive. LOCATION: Abdomen. FINDINGS: An ERCP was performed by the ordering physician. The images demonstrate mild prominence of common bile duct. The pancreatic duct is not well visualize d. No stones are seen. CONCLUSION: ERCP as above. Huber Delacruz MD on July 26, 2017 at 15:32 Board Certified Radiologist. This report was verified electronically.
== END ==
LOC: HSDC 07:48
PROVIDERS: ATTEND Internal Medicine Gastroenterology
DX: Z46.59 Encounter for fitting and adjustment of other gastrointestinal appliance and device (principal); K80.30 Calculus of bile duct with cholangitis, unspecified, without obstruction; K57.10 Diverticulosis of small intestine without perforation or abscess without bleeding
CPT/HCPCS: 00740; 43275; 74330; C1769; J7120; Q9967